=== PATIENT | male | born 1950 | race Caucasian/White ===

== ENCOUNTER 2017-05-07 14:43 | Inpatient (IN) | payer MEDICARE ==
[~2017-05-07] VITALS: Ht 167.6 cm; Wt 49.0 kg
[2017-05-07] MEDS ORDERED: IPRATRPIUM/ALBUTEROL 0.5/2.5MG 3 ML NEBU. ONE (15:08)
[2017-05-07 15:18] LABS: BASO # 0.1 x10^3/uL (0.0-0.2); BASO % 1 % (0-3); EOS # 0.4 x10^3/uL (0.0-0.7); EOS % 5 % (0-3); HEMATOCRIT 44.5 % (39.0-53.0); HEMOGLOBIN 14.5 g/dL (13.0-17.5); LYMPH # 1.8 x10^3/uL (1.0-4.8); LYMPH % 23 % (24-48); MEAN CORPUSCULAR HEMOGLOBIN 31 pg (25-35); MEAN CORPUSCULAR HGB CONC 33 g/dL (31-37); MEAN CORPUSCULAR VOLUME 94 fL (79-100); MONO # 0.6 x10^3/uL (0.0-1.1); MONO % 8 % (0-9); NEUT # 5.1 x10^3uL (1.8-7.7); NEUT % 64 % (31-73); PLATELET COUNT 292 x10^3/uL (140-400); RED BLOOD COUNT 4.72 x10^6/uL (4.30-5.70); RED CELL DISTRIBUTION WIDTH 14.7 % (11.5-14.5); WHITE BLOOD COUNT 7.9 x10^3/uL (4.0-11.0)
[2017-05-07 15:23] LABS: ALBUMIN 3.9 g/dL (3.4-5.0); ALBUMIN/GLOBULIN RATIO 1.1 (1.0-1.7); CALCIUM 9.1 mg/dL (8.5-10.1); CREATININE 0.7 mg/dL (0.7-1.3); GFR 112.1; TOTAL BILIRUBIN 0.4 mg/dL (0.2-1.0); TOTAL PROTEIN 7.5 g/dL (6.4-8.2)
[2017-05-07] MEDS ORDERED: ASPIRIN 81 MG TAB.CHEW PO ONE (15:40)
[2017-05-07] MEDS ORDERED: methylPREDNISolone SOD SUCC PF 125 MG/2 ML VIAL. IV ONE (15:40)
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
--- NOTE | 2017-05-07 16:34 | RAD ---
Exam: AP portable chest History: Chest pain for one day. Comparison: None. Findings: Cardiac silhouette appears within normal limits for size. No pneumothorax is seen. Emphysematous changes of the lungs are present. Patchy infiltrate is seen in the mid left lung zone. Old left rib fractures are seen. Impression: 1. Patchy parenchymal infiltrate in the left midlung zone. Recommend appropriate treatment and follow-up PA and lateral chest radiographs in 6-8 weeks to ensure resolution. Electronically signed by: Chidi Archer MD (05/07/2017 4:31 PM)
[2017-05-07] MEDS ORDERED: IV NORMAL SALINE 1,000ML 1,000 ML IV ONE (16:40)
[2017-05-07 17:37] LABS: BILIRUBIN,URINE NEG (NEG); CLARITY,URINE HAZY; COLOR,URINE YELLOW; GLUCOSE,URINE 500 mg/dL (NEG); NITRITE,URINE NEG (NEG); UROBILINOGEN,URINE 1 mg/dL (0.2 mg/dL)
[2017-05-07 17:38] LABS: AMORPHOUS SEDIMENT,UR PRESENT /HPF; BACTERIA,URINE 0 /HPF (0-FEW); RBC,URINE 0 /HPF (0-2); SQUAMOUS EPITHELIAL CELL,UR OCC /LPF; WBC,URINE OCC /HPF (0-4)
--- NOTE | 2017-05-07 19:06 | EKG ---
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
--- NOTE | 2017-05-07 19:13 | ACF ---
Admission Criteria Forms COPD Clinical Indications for Admission to Inpatient Care (Place 'X' for any and all applicable criteria): Admission is indicated for ANY ONE of the following (1)(2)(3): [ X]I. Acute exacerbation by high-risk comorbidity (e.g., pneumonia, dysrhythmia, heart failure, pleural effusion, pneumothorax) or severe underlying COPD (e.g., steroid dependent) [ ]II. Inpatient admission required rather than observation care (see Chronic Obstructive Pulmonary Disease: Observation Care) because of ANY ONE of the following: [ ]a) New or pre-existing signs or symptoms of COPD (eg, dyspnea or Tachypnea at rest or with minimal activity) that persist despite outpatient and observation care treatment [ ]b) New-onset hypoxemia (room air SaO2 less than 90%, PO2 less than 60 mm Hg (8.0 kPa)) that persists despite outpatient and observation care treatment [ ]c) Worsening of pre-existing hypoxemia (eg, new or increased requirement for supplemental oxygen to maintain oxygenation at baseline level) that persists despite outpatient and observation care treatment, with oxygen treatment needs performable only in acute inpatient setting [ ]d) Hypercarbia (PCO2 greater than 40 mm Hg (5.3 kPa))-induced respiratory acidosis (pH less than 7.35) that persists despite outpatient and observation care treatment [ ]e) Supplemental oxygen or respiratory treatments for over 24 hours that are performable only in acute inpatient setting [ ]f) Chest tube placement with active evacuation (e.g., suction, drainage) (5) [ ]g) Other condition, treatment or monitoring requiring inpatient admission [ ]III. Planned invasive surgical or diagnostic procedures requiring acute- care hospitalization [ ]IV. Acute respiratory failure (e.g., uncompensated hypercarbia, severe hypoxemia) [ ]V. Severe comorbid condition (e.g., severe steroid myopathy, acute vertebral fracture) that has acutely worsened pulmonary function [ ]. Confusion state, lethargy, obtundation, stupor or coma Extended stay beyond goal length of stay may be needed for (31)(32): [ ]a ) Respiratory Failure. [ ]b) Severe or persisting hypoxemia or hypercarbia [ ]c) Severe or persistent dyspnea [ ]d) Comorbidities (e.g. chronic heart failure, atrial fibrillation with rapid response, pneumonia) [ ]e) Malnutrition The original [facility] content created by [facility] has been revised. The portions of the content which have been revised are identified through the use of italic text or in bold, and [facility] has neither reviewed nor approved the modified material. All other unmodified content is copyright [facility]. Please see references footnoted in the original [facility] edition 2016 Admission Criteria Met?: Yes FELIX ONTIVEROS May 07, 2017 19:13
[2017-05-07 19:33] VITALS: BP 133/63
[2017-05-07] MEDS ORDERED: ALBUTEROL SULFATE 2.5 MG/0.5 ML NEBU. NEB PRN (21:00)
[2017-05-07] MEDS: ALPRAZolam 0.25 MG TABLET PO PRN (21:52)
[2017-05-07] MEDS: methylPREDNISolone SOD SUCC PF 40 MG/ML VIAL. IV SCH (21:52)
[2017-05-07 23:30] VITALS: BP 135/53
[2017-05-08 05:25] VITALS: BP 113/66
[2017-05-08] MEDS: methylPREDNISolone SOD SUCC PF 40 MG/ML VIAL. IV SCH ×3 (05:47→21:22)
[2017-05-08 07:17] LABS: ALBUMIN 2.9 g/dL (3.4-5.0); ALBUMIN/GLOBULIN RATIO 0.9 (1.0-1.7); CALCIUM 8.5 mg/dL (8.5-10.1); CREATININE 0.9 mg/dL (0.7-1.3); GFR 83.9; POTASSIUM 4.8 mmol/L (3.5-5.1); TOTAL BILIRUBIN 0.1 mg/dL (0.2-1.0); TOTAL PROTEIN 6.1 g/dL (6.4-8.2)
[2017-05-08 07:39] LABS: BASO % 0 % (0-3); EOS % 0 % (0-3); HEMOGLOBIN 11.6 g/dL (13.0-17.5); LYMPH # 0.6 x10^3/uL (1.0-4.8); LYMPH % 9 % (24-48); MEAN CORPUSCULAR HEMOGLOBIN 31 pg (25-35); MEAN CORPUSCULAR HGB CONC 33 g/dL (31-37); MEAN CORPUSCULAR VOLUME 93 fL (79-100); MONO # 0.2 x10^3/uL (0.0-1.1); MONO % 3 % (0-9); NEUT # 5.8 x10^3uL (1.8-7.7); NEUT % 88 % (31-73); PLATELET COUNT 252 x10^3/uL (140-400); RED BLOOD COUNT 3.77 x10^6/uL (4.30-5.70); RED CELL DISTRIBUTION WIDTH 14.3 % (11.5-14.5); WHITE BLOOD COUNT 6.7 x10^3/uL (4.0-11.0)
[2017-05-08] MEDS: ACETAMINOPHEN 325 MG TABLET PO PRN ×2 (09:19→21:22)
[2017-05-08] MEDS ORDERED: ROFL500T7 PO (09:49)
[2017-05-08] MEDS ORDERED: ALBU2.5V14 NEB (09:49)
[2017-05-08] MEDS ORDERED: ASPI-630 PO (09:50)
[2017-05-08] MEDS ORDERED: FLUO10CA7 PO (09:50)
[2017-05-08] MEDS ORDERED: TIOT18CA IH (09:54)
[2017-05-08] MEDS ORDERED: IBUP400T18 PO (10:00)
[2017-05-08 10:35] VITALS: BP 127/54
[2017-05-08 14:09] VITALS: BP 126/69
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
[2017-05-08] MEDS ORDERED: IBUPROFEN 400 MG TABLET. PO PRN (15:15)
[2017-05-08] MEDS ORDERED: ALBUTEROL SULFATE 2.5 MG/3 ML NEBU. NEB PRN (15:15)
[2017-05-08] MEDS ORDERED: ALBUTEROL SULFATE 2.5 MG/0.5 ML NEBU. NEB PRN (15:15)
[2017-05-08] MEDS: FLUoxetine HCL 10 MG CAPSULE PO SCH (15:42)
[2017-05-08] MEDS: ROFLUMILAST 500 MCG TABLET PO SCH (15:42)
[2017-05-08] MEDS: IPRATRPIUM/ALBUTEROL 0.5/2.5MG 3 ML NEBU. NEB SCH ×2 (16:00→20:00)
[2017-05-08 20:00] VITALS: BP 126/71
[2017-05-08] MEDS: ASPIRIN 81 MG TAB.CHEW PO SCH (21:22)
[2017-05-08] MEDS: ALPRAZolam 0.25 MG TABLET PO PRN (21:22)
--- NOTE | 2017-05-08 23:12 | PN ---
DATE: SUBJECTIVE: The patient is resting, slightly propped up in bed, in no apparent distress. He is definitely more awake, alert, responding appropriately. He has had no further episode of chest pain. He continued to have shortness of breath and was able to walk only for short distances because of shortness of breath. OBJECTIVE: GENERAL: When I examined him today, he looked well and was clearly pale, markedly cachectic, but no jaundice, cyanosis, or thyromegaly. No jugular venous distention. No limb edema. VITAL SIGNS: His heart rate was 96, blood pressure 117/64, temperature was 97.6, respiratory rate was 16, and oxygen saturation was 98% on 2 liters of oxygen. HEAD, EYES, EARS, NOSE AND THROAT: Showed normocephalic, atraumatic. NECK: Supple. HEART: Showed normal first and second heart sounds with no gallop, rub or murmur. CHEST: Clear to auscultation. No crepitation or rhonchi. ABDOMEN: Distended, soft, nontender. No guarding or rigidity. No organomegaly. Hernial orifices intact. Bowel sounds normal. NEUROLOGIC: He was awake, alert, responding appropriately. Cranial nerves intact. He moves extremities without difficulty, although he currently walks for short distances. LABORATORY DATA: Showed that he has only one set of cardiac enzymes, which showed troponin to be less than 0.017. PLAN: My plan is to continue with all his current medications. I will add 2 more sets of cardiac enzymes, check his fasting lipid profile tomorrow and consult Cardiology and if all is well, we will obviously consult our supervisor case loading to assist with placement in a [facility]. LISA STEIN MD DR: DAVID/devaughn JOB#: [id number] / [id number]
[2017-05-09 04:15] VITALS: BP 152/80
[2017-05-09 05:00] VITALS: BP 125/70
[2017-05-09] MEDS: methylPREDNISolone SOD SUCC PF 40 MG/ML VIAL. IV SCH ×3 (05:53→21:55)
[2017-05-09] MEDS: IPRATRPIUM/ALBUTEROL 0.5/2.5MG 3 ML NEBU. NEB SCH ×4 (08:00→20:28)
[2017-05-09] MEDS: ROFLUMILAST 500 MCG TABLET PO SCH (08:09)
[2017-05-09] MEDS: ALPRAZolam 0.25 MG TABLET PO PRN ×2 (08:09→20:40)
[2017-05-09] MEDS: FLUoxetine HCL 10 MG CAPSULE PO SCH (08:10)
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
[2017-05-09 11:13] VITALS: BP 127/83
[2017-05-09] MEDS: DOXYCYCLINE HYCLATE 100 MG TABLET PO SCH ×2 (13:46→20:41)
--- NOTE | 2017-05-09 14:38 | RAD ---
Indication: Infiltrate. Time of exam 1511 hours. Correlation is made with prior study from 05/07/2017. The heart size is stable. Lungs remain hyperinflated consistent with COPD. The parenchymal density in the left midlung field is similar to perhaps slightly improved since prior study. The right lung is clear. No effusion is seen. There is no pneumothorax. Impression: Stable to slight improved appearance to the parenchymal density in the left mid lung when compared with exam 2 days earlier. Continued follow-up is recommended.
--- NOTE | 2017-05-09 14:44 | CARD ---
APPROVED REPORT EXAM: Two-dimensional and M-mode echocardiogram with Doppler and color Doppler. Other Information Quality : Technically Limited Technically limited study due to smoking, COPD. INDICATION Dyspnea 2D DIMENSIONS RVDd2.9 (2.9-3.5cm)Left Atrium(2D)2.4 (1.6-4.0cm) IVSd0.9 (0.7-1.1cm)Aortic Root(2D)3.0 (2.0-3.7cm) LVDd4.6 (3.9-5.9cm)LVOT Diameter2.1 (1.8-2.4cm) PWd0.9 (0.7-1.1cm)LVDs3.2 (2.5-4.0cm) FS (%) 27.6 %SV57.2 ml LVEF(%)55.1 (>50%) Aortic Valve AoV Peak Marcos.135.3cm/sAoV VTI23.3cm AO Peak GR.7.3mmHgLVOT Peak Marcos.114.4cm/s LVOT VTI 20.98cmAO Mean GR.4mmHg DARWIN (VMAX)2.60lp6GKW (VTI)3.01cm2 Mitral Valve MV E Impwvfcj66.8cm/sMV DECEL IACE693kq MV A Heknbltn276.8cm/sMV YNW40pf E/A Ratio0.8MV A Busokwny852fk MVA (PHT)3.89cm2 Tricuspid Valve TR P. Oosgvhwz548ho/sRAP HYKXAHGK9haDp TR Peak Gr.00kfKqZXTT46onFm LEFT VENTRICLE The left ventricle is normal size. There is normal left ventricular wall thickness. Left ventricle sy stolic function is normal. The Ejection Fraction is 55-60%. There is normal LV segmental wall motion. Tissue Doppler imaging reveals mild left ventricular diastolic dysfunction. Transmitral Doppler flow pattern is Grade I-abnormal relaxation pattern. RIGHT VENTRICLE The right ventricle is normal size. The right ventricular systolic function is normal. ATRIA The left atrium size is normal. The right atrium size is normal. The interatrial septum is intact wit h no evidence for an atrial septal defect or patent foramen ovale as noted on 2-D or Doppler imaging. AORTIC VALVE The aortic valve is mildly calcified. The aortic valve is trileaflet. Doppler and Color Flow revealed trace aortic regurgitation. There is no significant aortic valvular stenosis. MITRAL VALVE Mitral annular calcification is mild. There is no evidence of mitral valve prolapse. There is no mitr al valve stenosis. Doppler and Color Flow revealed trace mitral valve regurgitation. TRICUSPID VALVE The tricuspid valve is normal in structure and function. Doppler and Color Flow revealed mild tricusp id regurgitation. The PA pressure was estimated at 29 mmHg. There is no tricuspid valve stenosis. PULMONIC VALVE The pulmonic valve is not well visualized. Doppler and Color Flow revealed no pulmonic valvular regur gitation. There is no pulmonic valvular stenosis. GREAT VESSELS The aortic root is normal in size. The IVC is normal in size and collapses >50% with inspiration. PERICARDIAL EFFUSION There is no evidence of significant pericardial effusion. Critical Notification Critical Value: No <Conclusion> The left ventricle is normal size. Left ventricle systolic function is normal. The Ejection Fraction is 55-60%. There is no significant aortic valvular stenosis. Doppler and Color Flow revealed trace aortic regurgitation. Doppler and Color Flow revealed trace mitral valve regurgitation. Doppler and Color Flow revealed mild tricuspid regurgitation. The PA pressure was estimated at 29 mmHg.
[2017-05-09 15:52] VITALS: BP 134/73
[2017-05-09 18:54] VITALS: BP 124/66
[2017-05-09] MEDS: ACETAMINOPHEN 325 MG TABLET PO PRN (20:41)
[2017-05-09] MEDS: ASPIRIN 81 MG TAB.CHEW PO SCH (20:41)
[2017-05-09 22:45] VITALS: BP 118/58
--- NOTE | 2017-05-09 23:03 | PN ---
DATE: 05/09/2017 PROBLEMS: 1. Acute exacerbation of chronic obstructive pulmonary disease. 2. Chest pain. 3. Hypoxia. 4. Patchy infiltrate in the left mid lung. 5. Anxiety. The patient is a 67-year-old, assuming care of Dr. Monroy. He has been quite anxious and the nurses have given him some Xanax. [place] [facility] [place] [facility] paid for by the [place]. Still a little short of breath with exertion, remains on oxygen. The diagnosis should be acute on chronic respiratory failure. OBJECTIVE: VITAL SIGNS: Blood pressure 127/83, pulse 78, respirations 24, pulse ox was 100% on 2 liters, height 66 inches, weight 108 pounds. GENERAL: Cachectic-appearing male in no acute distress. HEENT: Tongue slightly dry. NECK: Supple. LUNGS: With distant breath sounds, with scattered wheezes. CARDIOVASCULAR: Regular rhythm and rate. ABDOMEN: Soft, nontender. EXTREMITIES: Without edema. DIAGNOSTIC DATA: Chest x-ray from yesterday noted from the shows patchy infiltrate in the left mid lung. LABORATORY DATA: Today, glucose is slightly elevated at 206. Troponins are negative. PLAN: 1. Decrease the dose of IV steroids. 2. Add in antibiotics. 3. PT, OT. 4. Plan for senior living services. BRI ALEXANDRE DO DR: DUARTE/devaughn JOB#: [id number] / [id number]
[2017-05-10] MEDS: IPRATRPIUM/ALBUTEROL 0.5/2.5MG 3 ML NEBU. NEB SCH ×4 (05:36→19:47)
[2017-05-10] MEDS: methylPREDNISolone SOD SUCC PF 40 MG/ML VIAL. IV SCH (06:00)
[2017-05-10 06:06] VITALS: BP 120/61
[2017-05-10 06:38] LABS: BASO % 0 % (0-3); EOS % 0 % (0-3); HEMATOCRIT 37.3 % (39.0-53.0); HEMOGLOBIN 12.2 g/dL (13.0-17.5); LYMPH # 0.8 x10^3/uL (1.0-4.8); LYMPH % 4 % (24-48); MEAN CORPUSCULAR HEMOGLOBIN 30 pg (25-35); MEAN CORPUSCULAR HGB CONC 33 g/dL (31-37); MEAN CORPUSCULAR VOLUME 92 fL (79-100); MONO # 0.9 x10^3/uL (0.0-1.1); MONO % 5 % (0-9); NEUT # 18.7 x10^3uL (1.8-7.7); NEUT % 92 % (31-73); PLATELET COUNT 280 x10^3/uL (140-400); RED BLOOD COUNT 4.04 x10^6/uL (4.30-5.70); RED CELL DISTRIBUTION WIDTH 14.7 % (11.5-14.5); WHITE BLOOD COUNT 20.4 x10^3/uL (4.0-11.0)
[2017-05-10 06:54] LABS: CALCIUM 8.7 mg/dL (8.5-10.1); CREATININE 0.8 mg/dL (0.7-1.3); GFR 96.1; MAGNESIUM 1.8 mg/dL (1.8-2.4); POTASSIUM 4.2 mmol/L (3.5-5.1); TOTAL BILIRUBIN 0.2 mg/dL (0.2-1.0); TOTAL PROTEIN 6.1 g/dL (6.4-8.2)
[2017-05-10 08:04] LABS: % BANDS 0 % (0-9); % BASOS 0 % (0-3); % EOS 0 % (0-5); % LYMPHS 5 % (24-48); % MONOS 3 % (0-10); % SEGS 92 % (35-66); PLT ESTIMATE ADEQUATE (ADEQUATE)
[2017-05-10] MEDS ORDERED: methylPREDNISolone SOD SUCC PF 40 MG/ML VIAL. IV SCH (08:45)
[2017-05-10] MEDS: ROFLUMILAST 500 MCG TABLET PO SCH (09:48)
[2017-05-10] MEDS: DOXYCYCLINE HYCLATE 100 MG TABLET PO SCH ×2 (09:48→20:22)
[2017-05-10] MEDS: FLUoxetine HCL 10 MG CAPSULE PO SCH (09:48)
--- NOTE | 2017-05-10 10:23 | PDOC ---
PROGRESS NOTES Diagnosis Problem Problems Medical Problems: (1) Chest pain Status: Acute (2) COPD exacerbation Status: Acute (3) Hypoxia Status: Acute Assessment Problems Medical Problems: (1) Chest pain Status: Acute (2) COPD exacerbation Status: Acute (3) Hypoxia Status: Acute 1. Chest pain c/w angina - resolved and now remains chest pain free. 2. CAD - abn MPI last year. Continue aspirin, no beta blockers due to COPD, add Ranexa. Recommend cardiac cath. He would prefer to follow with Dr Yee at [facility]. Lipids controlled but will add statin for plaque stabilization. Consider advanced lipid testing as outpatient. Suggest follow up in the next 2- 4 weeks, with primary facility maintenance technician, for re-evaluation and possible cath. He should have BMP in 1-2 weeks and FLP, CK, ALT in 6 weeks. 3. COPD exacerbation - improved 4. paroxysmal atrial fibrillation in post code setting - no known reoccurrence. - Suggest outpatient event monitoring for afib burden. [id number] = 2. Aspirin only at this time pending outpatient re-evaluation with primary facility maintenance technician. CV stable for discharge. POC discussed with Dr Christopher. Problems: Subjective no chest pain, breathing much better, no new complaints Objective tele - sinus rhythm Vital Signs Date Time Temp Pulse Resp B/P (MAP) Pulse Ox O2 Delivery O2 Flow Rate FiO2 05/10/17 07:20 Nasal Cannula 2.0 05/10/17 06:06 97.9 96 20 120/61 (80) 96 Intake and Output 05/10/17 07:00 Intake Total 1980 ml Output Total 2200 ml Balance -220 ml Intake Oral 1980 ml Output Urine Total 2200 ml # Bowel Movements 1 Abdomen: Normal bowel sounds, Soft Heart: Regular rate, Normal S1, Normal S2 Extremities: No cyanosis, No edema, Normal pulses General: Alert, Oriented X3, Cooperative, No acute distress HEENT: Atraumatic, EOMI, Mucous membr. moist/pink Lungs: Other (wheezing resolved, bases decreased) Neuro: Normal speech Psych/Mental Status: Mental status NL, Mood NL Review of Relevant I have reviewed the following items sharri (where applicable) has been applied. Labs Laboratory Tests Test 05/08/17 13:33 05/08/17 18:45 05/09/17 05:40 05/10/17 06:15 Troponin I Quantitative < 0.017 ng/mL (0-0.055) < 0.017 ng/mL (0-0.055) Triglycerides Level 50 mg/dL (0-150) Cholesterol Level 154 mg/dL (0-200) LDL Cholesterol, Calculated 69 mg/dL (0-100) VLDL Cholesterol, Calculated 10 mg/dL (0-40) Non-HDL Cholesterol Calculated 79 mg/dL (0-129) HDL Cholesterol 75 mg/dL (40-60) Cholesterol/HDL Ratio 2.0 White Blood Count 20.4 x10^3/uL (4.0-11.0) Red Blood Count 4.04 x10^6/uL (4.30-5.70) Hemoglobin 12.2 g/dL (13.0-17.5) Hematocrit 37.3 % (39.0-53.0) Mean Corpuscular Volume 92 fL (79-100) Mean Corpuscular Hemoglobin 30 pg (25-35) Mean Corpuscular Hemoglobin Concent 33 g/dL (31-37) Red Cell Distribution Width 14.7 % (11.5-14.5) Platelet Count 280 x10^3/uL (140-400) Neutrophils (%) (Auto) 92 % (31-73) Lymphocytes (%) (Auto) 4 % (24-48) Monocytes (%) (Auto) 5 % (0-9) Eosinophils (%) (Auto) 0 % (0-3) Basophils (%) (Auto) 0 % (0-3) Neutrophils # (Auto) 18.7 x10^3uL (1.8-7.7) Lymphocytes # (Auto) 0.8 x10^3/uL (1.0-4.8) Monocytes # (Auto) 0.9 x10^3/uL (0.0-1.1) Eosinophils # (Auto) 0.0 x10^3/uL (0.0-0.7) Basophils # (Auto) 0.0 x10^3/uL (0.0-0.2) Segmented Neutrophils % 92 % (35-66) Band Neutrophils % 0 % (0-9) Lymphocytes % 5 % (24-48) Monocytes % 3 % (0-10) Eosinophils % 0 % (0-5) Basophils % 0 % (0-3) Platelet Estimate Adequate (ADEQUATE) Sodium Level 141 mmol/L (136-145) Potassium Level 4.2 mmol/L (3.5-5.1) Chloride Level 104 mmol/L (98-107) Carbon Dioxide Level 34 mmol/L (21-32) Anion Gap 3 (6-14) Blood Urea Nitrogen 19 mg/dL (8-26) Creatinine 0.8 mg/dL (0.7-1.3) Estimated GFR (Cockcroft-Gault) 96.1 BUN/Creatinine Ratio 24 (6-20) Glucose Level 144 mg/dL (70-99) Calcium Level 8.7 mg/dL (8.5-10.1) Magnesium Level 1.8 mg/dL (1.8-2.4) Total Bilirubin 0.2 mg/dL (0.2-1.0) Aspartate Amino Transf (AST/SGOT) 12 U/L (15-37) Alanine Aminotransferase (ALT/SGPT) 24 U/L (16-63) Alkaline Phosphatase 56 U/L (46-116) Total Protein 6.1 g/dL (6.4-8.2) Albumin 3.0 g/dL (3.4-5.0) Albumin/Globulin Ratio 1.0 (1.0-1.7) Medications Current Medications Aspirin (Children'S Aspirin) 324 mg 1X ONCE PO Last administered on 05/07/17 15:33; Start 05/07/17 at 15:40; Stop 05/07/17 at 15:41; Status DC Methylprednisolone Sodium Succinate (SOLU-Medrol 125MG VIAL) 125 mg 1X ONCE IV Last administered on 05/07/17 15:32; Start 05/07/17 at 15:40; Stop 05/07/17 at 15:41; Status DC Albuterol/ Ipratropium (Duoneb) 3 ml STK-MED ONCE .ROUTE ; Start 05/07/17 at 15: 08; Stop 05/07/17 at 15:09; Status DC Sodium Chloride 1,000 ml @ 1,000 mls/hr 1X ONCE IV Last administered on 16:40; Start 05/07/17 at 16:40; Stop 05/07/17 at 17:39; Status DC Albuterol Sulfate (Ventolin) 2.5 mg PRN Q4HRS PRN NEB SHORTNESS OF BREATH; Start 05/07/17 at 21:00; Stop 05/08/17 at 15:12; Status DC Methylprednisolone Sodium Succinate (SOLU-Medrol 40MG VIAL) 40 mg Q8HRS IV Last administered on 05/09/17 05:53; Start 05/07/17 at 22:00; Stop 05/09/17 at 11:51; Status DC Acetaminophen (Tylenol) 650 mg PRN Q4HRS PRN PO PAIN / TEMP Last administered on 05/09/17 20:41; Start 05/07/17 at 20:45 Alprazolam (Xanax) 0.25 mg PRN Q8HRS PRN PO ANXIETY / AGITATION Last administered on 05/09/17 20:40; Start 05/07/17 at 21:15 Albuterol Sulfate (Ventolin) 2.5 mg PRN Q4HRS PRN NEB SHORTNESS OF BREATH; Start 05/08/17 at 15:15; Stop 05/08/17 at 15:15; Status DC Aspirin (Children'S Aspirin) 81 mg HS PO Last administered on 05/09/17 20:41; Start 05/08/17 at 21:00 Fluoxetine HCl (PROzac) 10 mg DAILY PO Last administered on 05/10/17 09:48; Start 05/08/17 at 15:30 Ibuprofen (Motrin) 200 mg PRN TID PRN PO PAIN; Start 05/08/17 at 15:15 Albuterol/ Ipratropium (Duoneb) 3 ml RTQID NEB Last administered on 05/10/17 05:36; Start 05/08/17 at 16:00 Albuterol Sulfate (Ventolin) 2.5 mg PRN Q4HRS PRN NEB SHORTNESS OF BREATH; Start 05/08/17 at 15:15 Methylprednisolone Sodium Succinate (SOLU-Medrol 40MG VIAL) 30 mg Q8HRS IV Last administered on 05/10/17 06:00; Start 05/09/17 at 14:00; Stop 05/10/17 at 08:22; Status DC Doxycycline Hyclate (Vibra-Tab) 100 mg BID PO Last administered on 05/10/17 09 :48; Start 05/09/17 at 12:15 Methylprednisolone Sodium Succinate (SOLU-Medrol 40MG VIAL) 30 mg [id number] IV Last administered on 05/10/17t 09:48; Start 05/10/17 at 08:45 Active Scripts Active Reported Ibuprofen 400 Mg Tablet 0.5 Tab PO TID PRN Spiriva (Tiotropium [place]) 18 Mcg Cap.w.dev 1 Cap IH DAILY Fluoxetine Hcl 10 Mg Capsule 1 Cap PO DAILY Aspirin 81 Mg Tab.chew 81 Mg PO HS Daliresp (Roflumilast) 500 Mcg Tablet 1 Tab PO DAILY Albuterol Sulfate Conc Neb Soln (Albuterol Sulfate) 2.5 Mg/0.5 Ml Vial.neb 1 Vial NEB Q4HRS PRN Vitals/I & O Vital Sign - Last 24 Hours 05/09/17 05/09/17 05/09/17 05/09/17 11:13 11:21 15:52 16:09 Temp 97.7 98.5 Pulse 78 93 Resp 24 24 B/P (MAP) 127/83 (98) 134/73 (93) Pulse Ox 100 99 100 99 O2 Delivery Nasal Cannula Nasal Cannula Room Air Nasal Cannula O2 Flow Rate 2.0 2.0 2.0 05/09/17 05/09/17 05/09/17 05/09/17 18:54 19:10 20:29 22:45 Temp 98.4 98.7 Pulse 96 100 Resp 22 20 B/P (MAP) 124/66 (85) 118/58 (78) Pulse Ox 98 96 97 O2 Delivery Room Air Nasal Cannula Room Air Nasal Cannula O2 Flow Rate 2.0 2.0 21.0 2.0 05/10/17 05/10/17 05/10/17 05:37 06:06 07:20 Temp 97.9 Pulse 96 Resp 20 B/P (MAP) 120/61 (80) Pulse Ox 98 96 O2 Delivery Room Air Nasal Cannula Nasal Cannula O2 Flow Rate 2.0 2.0 2.0 Intake and Output 05/09/17 05/09/17 05/10/17 15:00 23:00 07:00 Intake Total 840 ml 840 ml 300 ml Output Total 800 ml 1000 ml 400 ml Balance 40 ml -160 ml -100 ml LINUS ESCOBAR APRN May 10, 2017 10:23
[2017-05-10] MEDS: ALPRAZolam 0.25 MG TABLET PO PRN ×2 (10:38→20:20)
[2017-05-10 12:25] VITALS: BP 117/64
[2017-05-10 15:39] VITALS: BP 122/67
--- NOTE | 2017-05-10 16:32 | PDOC ---
PROGRESS NOTES Diagnosis RESPIRATORY FAILURE: Acute on Chronic Problem Problems Medical Problems: (1) Chest pain Status: Acute (2) COPD exacerbation Status: Acute (3) Hypoxia Status: Acute Assessment Problems Medical Problems: (1) Chest pain Status: Acute (2) COPD exacerbation Status: Acute (3) Hypoxia Status: Acute Problems: Objective Vital Signs Date Time Temp Pulse Resp B/P (MAP) Pulse Ox O2 Delivery O2 Flow Rate FiO2 05/10/17 12:25 99.4 110 20 117/64 (81) 96 Nasal Cannula 2.0 Intake and Output 05/10/17 07:00 Intake Total 1980 ml Output Total 2200 ml Balance -220 ml Intake Oral 1980 ml Output Urine Total 2200 ml # Bowel Movements 1 Review of Relevant I have reviewed the following items sharri (where applicable) has been applied. Labs Laboratory Tests Test 05/08/17 18:45 05/09/17 05:40 05/10/17 06:15 Troponin I Quantitative < 0.017 ng/mL (0-0.055) Triglycerides Level 50 mg/dL (0-150) Cholesterol Level 154 mg/dL (0-200) LDL Cholesterol, Calculated 69 mg/dL (0-100) VLDL Cholesterol, Calculated 10 mg/dL (0-40) Non-HDL Cholesterol Calculated 79 mg/dL (0-129) HDL Cholesterol 75 mg/dL (40-60) Cholesterol/HDL Ratio 2.0 White Blood Count 20.4 x10^3/uL (4.0-11.0) Red Blood Count 4.04 x10^6/uL (4.30-5.70) Hemoglobin 12.2 g/dL (13.0-17.5) Hematocrit 37.3 % (39.0-53.0) Mean Corpuscular Volume 92 fL (79-100) Mean Corpuscular Hemoglobin 30 pg (25-35) Mean Corpuscular Hemoglobin Concent 33 g/dL (31-37) Red Cell Distribution Width 14.7 % (11.5-14.5) Platelet Count 280 x10^3/uL (140-400) Neutrophils (%) (Auto) 92 % (31-73) Lymphocytes (%) (Auto) 4 % (24-48) Monocytes (%) (Auto) 5 % (0-9) Eosinophils (%) (Auto) 0 % (0-3) Basophils (%) (Auto) 0 % (0-3) Neutrophils # (Auto) 18.7 x10^3uL (1.8-7.7) Lymphocytes # (Auto) 0.8 x10^3/uL (1.0-4.8) Monocytes # (Auto) 0.9 x10^3/uL (0.0-1.1) Eosinophils # (Auto) 0.0 x10^3/uL (0.0-0.7) Basophils # (Auto) 0.0 x10^3/uL (0.0-0.2) Segmented Neutrophils % 92 % (35-66) Band Neutrophils % 0 % (0-9) Lymphocytes % 5 % (24-48) Monocytes % 3 % (0-10) Eosinophils % 0 % (0-5) Basophils % 0 % (0-3) Platelet Estimate Adequate (ADEQUATE) Sodium Level 141 mmol/L (136-145) Potassium Level 4.2 mmol/L (3.5-5.1) Chloride Level 104 mmol/L (98-107) Carbon Dioxide Level 34 mmol/L (21-32) Anion Gap 3 (6-14) Blood Urea Nitrogen 19 mg/dL (8-26) Creatinine 0.8 mg/dL (0.7-1.3) Estimated GFR (Cockcroft-Gault) 96.1 BUN/Creatinine Ratio 24 (6-20) Glucose Level 144 mg/dL (70-99) Calcium Level 8.7 mg/dL (8.5-10.1) Magnesium Level 1.8 mg/dL (1.8-2.4) Total Bilirubin 0.2 mg/dL (0.2-1.0) Aspartate Amino Transf (AST/SGOT) 12 U/L (15-37) Alanine Aminotransferase (ALT/SGPT) 24 U/L (16-63) Alkaline Phosphatase 56 U/L (46-116) Total Protein 6.1 g/dL (6.4-8.2) Albumin 3.0 g/dL (3.4-5.0) Albumin/Globulin Ratio 1.0 (1.0-1.7) Medications Current Medications Aspirin (Children'S Aspirin) 324 mg 1X ONCE PO Last administered on 05/07/17t 15:33; Start 05/07/17 at 15:40; Stop 05/07/17 at 15:41; Status DC Methylprednisolone Sodium Succinate (SOLU-Medrol 125MG VIAL) 125 mg 1X ONCE IV Last administered on 05/07/17 15:32; Start 05/07/17 at 15:40; Stop 05/07/17 at 15:41; Status DC Albuterol/ Ipratropium (Duoneb) 3 ml STK-MED ONCE .ROUTE ; Start 05/07/17 at 15: 08; Stop 05/07/17 at 15:09; Status DC Sodium Chloride 1,000 ml @ 1,000 mls/hr 1X ONCE IV Last administered on 16:40; Start 05/07/17 at 16:40; Stop 05/07/17 at 17:39; Status DC Albuterol Sulfate (Ventolin) 2.5 mg PRN Q4HRS PRN NEB SHORTNESS OF BREATH; Start 05/07/17 at 21:00; Stop 05/08/17 at 15:12; Status DC Methylprednisolone Sodium Succinate (SOLU-Medrol 40MG VIAL) 40 mg Q8HRS IV Last administered on 05/09/17 05:53; Start 05/07/17 at 22:00; Stop 05/09/17 at 11:51; Status DC Acetaminophen (Tylenol) 650 mg PRN Q4HRS PRN PO PAIN / TEMP Last administered on 05/09/17 20:41; Start 05/07/17 at 20:45 Alprazolam (Xanax) 0.25 mg PRN Q8HRS PRN PO ANXIETY / AGITATION Last administered on 05/10/17 10:38; Start 05/07/17 at 21:15 Albuterol Sulfate (Ventolin) 2.5 mg PRN Q4HRS PRN NEB SHORTNESS OF BREATH; Start 05/08/17 at 15:15; Stop 05/08/17 at 15:15; Status DC Aspirin (Children'S Aspirin) 81 mg HS PO Last administered on 05/09/17 20:41; Start 05/08/17 at 21:00 Fluoxetine HCl (PROzac) 10 mg DAILY PO Last administered on 05/10/17 09:48; Start 05/08/17 at 15:30 Ibuprofen (Motrin) 200 mg PRN TID PRN PO PAIN; Start 05/08/17 at 15:15 Albuterol/ Ipratropium (Duoneb) 3 ml RTQID NEB Last administered on 05/10/17 05:36; Start 05/08/17 at 16:00 Albuterol Sulfate (Ventolin) 2.5 mg PRN Q4HRS PRN NEB SHORTNESS OF BREATH; Start 05/08/17 at 15:15 Methylprednisolone Sodium Succinate (SOLU-Medrol 40MG VIAL) 30 mg Q8HRS IV Last administered on 05/10/17 06:00; Start 05/09/17 at 14:00; Stop 05/10/17 at 08:22; Status DC Doxycycline Hyclate (Vibra-Tab) 100 mg BID PO Last administered on 05/10/17 09 :48; Start 05/09/17 at 12:15 Methylprednisolone Sodium Succinate (SOLU-Medrol 40MG VIAL) 30 mg [id number] IV Last administered on 05/10/17 09:48; Start 05/10/17 at 08:45; Stop 05/10/17 at 10:55; Status DC Ranolazine (Ranexa) 500 mg BID PO ; Start 05/10/17 at 21:00 Atorvastatin Calcium (Lipitor) 40 mg QHS PO ; Start 05/10/17 at 21:00 Prednisone (Prednisone) 10 mg 1X ONCE PO ; Start 05/10/17 at 17:00; Stop at 17:01 Prednisone (Prednisone) 20 mg 1X ONCE PO ; Start 05/10/17 at 17:00; Stop at 17:01 Prednisone (Prednisone) 20 mg BID PO ; Start 05/11/17 at 09:00; Stop 05/13/17 at 08:59 Active Scripts Active Reported Ibuprofen 400 Mg Tablet 0.5 Tab PO TID PRN Spiriva (Tiotropium [place]) 18 Mcg Cap.w.dev 1 Cap IH DAILY Fluoxetine Hcl 10 Mg Capsule 1 Cap PO DAILY Aspirin 81 Mg Tab.chew 81 Mg PO HS Daliresp (Roflumilast) 500 Mcg Tablet 1 Tab PO DAILY Albuterol Sulfate Conc Neb Soln (Albuterol Sulfate) 2.5 Mg/0.5 Ml Vial.neb 1 Vial NEB Q4HRS PRN Vitals/I & O Vital Sign - Last 24 Hours 05/09/17 05/09/17 05/09/1717 18:54 19:10 20:29 22:45 Temp 98.4 98.7 Pulse 96 100 Resp 22 20 B/P (MAP) 124/66 (85) 118/58 (78) Pulse Ox 98 96 97 O2 Delivery Room Air Nasal Cannula Room Air Nasal Cannula O2 Flow Rate 2.0 2.0 21.0 2.0 05/10/17 05/10/17 05/10/17 05/10/17 05:37 06:06 07:20 12:25 Temp 97.9 99.4 Pulse 96 110 Resp 20 20 B/P (MAP) 120/61 (80) 117/64 (81) Pulse Ox 98 96 96 O2 Delivery Room Air Nasal Cannula Nasal Cannula Nasal Cannula O2 Flow Rate 2.0 2.0 2.0 2.0 Intake and Output 05/09/17 05/09/17 05/10/17 15:00 23:00 07:00 Intake Total 840 ml 840 ml 300 ml Output Total 800 ml 1000 ml 400 ml Balance 40 ml -160 ml -100 ml BRI ALEXANDRE DO May 10, 2017 16:32
--- NOTE | 2017-05-10 16:50 | PDOC ---
PROGRESS NOTES Diagnosis Problem Problems Medical Problems: (1) Chest pain Status: Acute (2) COPD exacerbation Status: Acute (3) Hypoxia Status: Acute Assessment Problems Medical Problems: (1) Chest pain Status: Acute (2) COPD exacerbation Status: Acute (3) Hypoxia Status: Acute Problems: Subjective 67 y/o male admitted with acute on chronic hypoxic respiratory failure, acute exacerbation of Copd, Let middle lobe pneumonia, underweight, sever protein calorie malnutrition, anxiety. Doing better. Breathing better. We are working on finding placement for him as he feels he would be better off in a nursing facility. Objective color improved, tongue moist, throat clear, CVrrr, Lungs with distant breath sounds and a few scattered wheezes. Extremities without edema Vital Signs Date Time Temp Pulse Resp B/P (MAP) Pulse Ox O2 Delivery O2 Flow Rate FiO2 05/10/17 12:25 99.4 110 20 117/64 (81) 96 Nasal Cannula 2.0 Intake and Output 05/10/17 07:00 Intake Total 1980 ml Output Total 2200 ml Balance -220 ml Intake Oral 1980 ml Output Urine Total 2200 ml # Bowel Movements 1 Abdomen: Normal bowel sounds, Soft, No tenderness, No hepatospenomegaly, No masses Review of Relevant I have reviewed the following items sharri (where applicable) has been applied. Labs Laboratory Tests Test 05/08/17 18:45 05/09/17 05:40 05/10/17 06:15 Troponin I Quantitative < 0.017 ng/mL (0-0.055) Triglycerides Level 50 mg/dL (0-150) Cholesterol Level 154 mg/dL (0-200) LDL Cholesterol, Calculated 69 mg/dL (0-100) VLDL Cholesterol, Calculated 10 mg/dL (0-40) Non-HDL Cholesterol Calculated 79 mg/dL (0-129) HDL Cholesterol 75 mg/dL (40-60) Cholesterol/HDL Ratio 2.0 White Blood Count 20.4 x10^3/uL (4.0-11.0) Red Blood Count 4.04 x10^6/uL (4.30-5.70) Hemoglobin 12.2 g/dL (13.0-17.5) Hematocrit 37.3 % (39.0-53.0) Mean Corpuscular Volume 92 fL (79-100) Mean Corpuscular Hemoglobin 30 pg (25-35) Mean Corpuscular Hemoglobin Concent 33 g/dL (31-37) Red Cell Distribution Width 14.7 % (11.5-14.5) Platelet Count 280 x10^3/uL (140-400) Neutrophils (%) (Auto) 92 % (31-73) Lymphocytes (%) (Auto) 4 % (24-48) Monocytes (%) (Auto) 5 % (0-9) Eosinophils (%) (Auto) 0 % (0-3) Basophils (%) (Auto) 0 % (0-3) Neutrophils # (Auto) 18.7 x10^3uL (1.8-7.7) Lymphocytes # (Auto) 0.8 x10^3/uL (1.0-4.8) Monocytes # (Auto) 0.9 x10^3/uL (0.0-1.1) Eosinophils # (Auto) 0.0 x10^3/uL (0.0-0.7) Basophils # (Auto) 0.0 x10^3/uL (0.0-0.2) Segmented Neutrophils % 92 % (35-66) Band Neutrophils % 0 % (0-9) Lymphocytes % 5 % (24-48) Monocytes % 3 % (0-10) Eosinophils % 0 % (0-5) Basophils % 0 % (0-3) Platelet Estimate Adequate (ADEQUATE) Sodium Level 141 mmol/L (136-145) Potassium Level 4.2 mmol/L (3.5-5.1) Chloride Level 104 mmol/L (98-107) Carbon Dioxide Level 34 mmol/L (21-32) Anion Gap 3 (6-14) Blood Urea Nitrogen 19 mg/dL (8-26) Creatinine 0.8 mg/dL (0.7-1.3) Estimated GFR (Cockcroft-Gault) 96.1 BUN/Creatinine Ratio 24 (6-20) Glucose Level 144 mg/dL (70-99) Calcium Level 8.7 mg/dL (8.5-10.1) Magnesium Level 1.8 mg/dL (1.8-2.4) Total Bilirubin 0.2 mg/dL (0.2-1.0) Aspartate Amino Transf (AST/SGOT) 12 U/L (15-37) Alanine Aminotransferase (ALT/SGPT) 24 U/L (16-63) Alkaline Phosphatase 56 U/L (46-116) Total Protein 6.1 g/dL (6.4-8.2) Albumin 3.0 g/dL (3.4-5.0) Albumin/Globulin Ratio 1.0 (1.0-1.7) Medications Current Medications Aspirin (Children'S Aspirin) 324 mg 1X ONCE PO Last administered on 05/07/17 15:33; Start 05/07/17 at 15:40; Stop 05/07/17 at 15:41; Status DC Methylprednisolone Sodium Succinate (SOLU-Medrol 125MG VIAL) 125 mg 1X ONCE IV Last administered on 05/07/17 15:32; Start 05/07/17 at 15:40; Stop 05/07/17 at 15:41; Status DC Albuterol/ Ipratropium (Duoneb) 3 ml STK-MED ONCE .ROUTE ; Start 05/07/17 at 15: 08; Stop 05/07/17 at 15:09; Status DC Sodium Chloride 1,000 ml @ 1,000 mls/hr 1X ONCE IV Last administered on 16:40; Start 05/07/17 at 16:40; Stop 05/07/17 at 17:39; Status DC Albuterol Sulfate (Ventolin) 2.5 mg PRN Q4HRS PRN NEB SHORTNESS OF BREATH; Start 05/07/17 at 21:00; Stop 05/08/17 at 15:12; Status DC Methylprednisolone Sodium Succinate (SOLU-Medrol 40MG VIAL) 40 mg Q8HRS IV Last administered on 05/09/17 05:53; Start 05/07/17 at 22:00; Stop 05/09/17 at 11:51; Status DC Acetaminophen (Tylenol) 650 mg PRN Q4HRS PRN PO PAIN / TEMP Last administered on 05/09/17 20:41; Start 05/07/17 at 20:45 Alprazolam (Xanax) 0.25 mg PRN Q8HRS PRN PO ANXIETY / AGITATION Last administered on 05/10/17 10:38; Start 05/07/17 at 21:15 Albuterol Sulfate (Ventolin) 2.5 mg PRN Q4HRS PRN NEB SHORTNESS OF BREATH; Start 05/08/17 at 15:15; Stop 05/08/17 at 15:15; Status DC Aspirin (Children'S Aspirin) 81 mg HS PO Last administered on 05/09/17 20:41; Start 05/08/17 at 21:00 Fluoxetine HCl (PROzac) 10 mg DAILY PO Last administered on 05/10/17 09:48; Start 05/08/17 at 15:30 Ibuprofen (Motrin) 200 mg PRN TID PRN PO PAIN; Start 05/08/17 at 15:15 Albuterol/ Ipratropium (Duoneb) 3 ml RTQID NEB Last administered on 05/10/17 05:36; Start 05/08/17 at 16:00 Albuterol Sulfate (Ventolin) 2.5 mg PRN Q4HRS PRN NEB SHORTNESS OF BREATH; Start 05/08/17 at 15:15 Methylprednisolone Sodium Succinate (SOLU-Medrol 40MG VIAL) 30 mg Q8HRS IV Last administered on 05/10/17 06:00; Start 05/09/17 at 14:00; Stop 05/10/17 at 08:22; Status DC Doxycycline Hyclate (Vibra-Tab) 100 mg BID PO Last administered on 05/10/17 09 :48; Start 05/09/17 at 12:15 Methylprednisolone Sodium Succinate (SOLU-Medrol 40MG VIAL) 30 mg [id number] IV Last administered on 05/10/17 09:48; Start 05/10/17 at 08:45; Stop 05/10/17 at 10:55; Status DC Ranolazine (Ranexa) 500 mg BID PO ; Start 05/10/17 at 21:00 Atorvastatin Calcium (Lipitor) 40 mg QHS PO ; Start 05/10/17 at 21:00 Prednisone (Prednisone) 10 mg 1X ONCE PO ; Start 05/10/17 at 17:00; Stop at 17:01 Prednisone (Prednisone) 20 mg 1X ONCE PO ; Start 05/10/17 at 17:00; Stop at 17:01 Prednisone (Prednisone) 20 mg BID PO ; Start 05/11/17 at 09:00; Stop 05/13/17 at 08:59 Active Scripts Active Reported Ibuprofen 400 Mg Tablet 0.5 Tab PO TID PRN Spiriva (Tiotropium [place]) 18 Mcg Cap.w.dev 1 Cap IH DAILY Fluoxetine Hcl 10 Mg Capsule 1 Cap PO DAILY Aspirin 81 Mg Tab.chew 81 Mg PO HS Daliresp (Roflumilast) 500 Mcg Tablet 1 Tab PO DAILY Albuterol Sulfate Conc Neb Soln (Albuterol Sulfate) 2.5 Mg/0.5 Ml Vial.neb 1 Vial NEB Q4HRS PRN Vitals/I & O Vital Sign - Last 24 Hours 05/09/17 05/09/17 05/09/17 05/09/17 18:54 19:10 20:29 22:45 Temp 98.4 98.7 Pulse 96 100 Resp 22 20 B/P (MAP) 124/66 (85) 118/58 (78) Pulse Ox 98 96 97 O2 Delivery Room Air Nasal Cannula Room Air Nasal Cannula O2 Flow Rate 2.0 2.0 21.0 2.0 05/10/17 05/10/17 05/10/17 05/10/17 05:37 06:06 07:20 12:25 Temp 97.9 99.4 Pulse 96 110 Resp 20 20 B/P (MAP) 120/61 (80) 117/64 (81) Pulse Ox 98 96 96 O2 Delivery Room Air Nasal Cannula Nasal Cannula Nasal Cannula O2 Flow Rate 2.0 2.0 2.0 2.0 Intake and Output 05/09/17 05/09/17 05/10/17 15:00 23:00 07:00 Intake Total 840 ml 840 ml 300 ml Output Total 800 ml 1000 ml 400 ml Balance 40 ml -160 ml -100 ml BRI ALEXANDRE DO May 10, 2017 16:50
[2017-05-10] MEDS ORDERED: predniSONE 10 MG TABLET PO ONE (17:00)
[2017-05-10] MEDS ORDERED: predniSONE 20 MG TABLET PO ONE (17:00)
[2017-05-10 18:41] VITALS: BP 117/67
[2017-05-10] MEDS: ASPIRIN 81 MG TAB.CHEW PO SCH (20:20)
[2017-05-10] MEDS: RANOLAZINE 500 MG TAB.ER.12H PO SCH (20:21)
[2017-05-10] MEDS ORDERED: ATORVASTATIN CALCIUM 20 MG TABLET PO SCH (21:00)
[2017-05-11] MEDS: ALPRAZolam 0.25 MG TABLET PO PRN (04:39)
[2017-05-11 05:14] VITALS: BP 120/77
[2017-05-11] MEDS: IPRATRPIUM/ALBUTEROL 0.5/2.5MG 3 ML NEBU. NEB SCH (05:21)
[2017-05-11 06:19] LABS: BASO % 0 % (0-3); EOS % 0 % (0-3); HEMATOCRIT 34.6 % (39.0-53.0); HEMOGLOBIN 11.5 g/dL (13.0-17.5); LYMPH % 8 % (24-48); MEAN CORPUSCULAR HEMOGLOBIN 31 pg (25-35); MEAN CORPUSCULAR HGB CONC 33 g/dL (31-37); MEAN CORPUSCULAR VOLUME 93 fL (79-100); MONO % 8 % (0-9); NEUT # 11.4 x10^3uL (1.8-7.7); NEUT % 85 % (31-73); PLATELET COUNT 255 x10^3/uL (140-400); RED BLOOD COUNT 3.74 x10^6/uL (4.30-5.70); RED CELL DISTRIBUTION WIDTH 14.5 % (11.5-14.5); WHITE BLOOD COUNT 13.5 x10^3/uL (4.0-11.0)
[2017-05-11 06:22] LABS: ALBUMIN 2.7 g/dL (3.4-5.0); ALBUMIN/GLOBULIN RATIO 0.9 (1.0-1.7); CALCIUM 8.4 mg/dL (8.5-10.1); CREATININE 0.7 mg/dL (0.7-1.3); GFR 112.1; POTASSIUM 4.7 mmol/L (3.5-5.1); TOTAL BILIRUBIN 0.4 mg/dL (0.2-1.0); TOTAL PROTEIN 5.6 g/dL (6.4-8.2)
[2017-05-11] MEDS: ROFLUMILAST 500 MCG TABLET PO SCH (08:50)
[2017-05-11] MEDS: FLUoxetine HCL 10 MG CAPSULE PO SCH (08:51)
[2017-05-11] MEDS: DOXYCYCLINE HYCLATE 100 MG TABLET PO SCH (08:51)
[2017-05-11] MEDS: RANOLAZINE 500 MG TAB.ER.12H PO SCH (08:51)
[2017-05-11] MEDS ORDERED: predniSONE 20 MG TABLET PO SCH (09:00)
[2017-05-11 10:25] VITALS: BP 123/70
--- NOTE | 2017-05-11 14:14 | PDOC3 ---
Discharge Summary Visit Information Date of Admission: May 07, 2017 Date of Discharge: May 11, 2017 Admitting Diagnosis: Chest Pain, anginal, Copd Final Diagnosis Problems Medical Problems: (1) Chest pain Status: Acute (2) COPD exacerbation Status: Acute (3) acute on chronic hypoxic respiratory failure #4 coronary artery disease will need a catheter in the future #5 underweight with moderate protein calorie malnutrition #6 anxiety #7 left midlung infiltrate #8 his weakness #9 self-care deficit Status: Acute Problems: Brief Hospital Course Allergies Allergies Coded Allergies Type Severity Reaction Last Updated Verified sertraline Allergy Intermediate 05/08/17 Yes Vital Signs Vital Signs Date Time Temp Pulse Resp B/P (MAP) Pulse Ox O2 Delivery O2 Flow Rate FiO2 05/11/17 10:25 97.0 96 20 123/70 (87) 96 Nasal Cannula 2.0 Lab Results Laboratory Tests Test 05/10/17 06:15 05/11/17 05:53 White Blood Count 20.4 x10^3/uL (4.0-11.0) 13.5 x10^3/uL (4.0-11.0) Red Blood Count 4.04 x10^6/uL (4.30-5.70) 3.74 x10^6/uL (4.30-5.70) Hemoglobin 12.2 g/dL (13.0-17.5) 11.5 g/dL (13.0-17.5) Hematocrit 37.3 % (39.0-53.0) 34.6 % (39.0-53.0) Mean Corpuscular Volume 92 fL (79-100) 93 fL (79-100) Mean Corpuscular Hemoglobin 30 pg (25-35) 31 pg (25-35) Mean Corpuscular Hemoglobin Concent 33 g/dL (31-37) 33 g/dL (31-37) Red Cell Distribution Width 14.7 % (11.5-14.5) 14.5 % (11.5-14.5) Platelet Count 280 x10^3/uL (140-400) 255 x10^3/uL (140-400) Neutrophils (%) (Auto) 92 % (31-73) 85 % (31-73) Lymphocytes (%) (Auto) 4 % (24-48) 8 % (24-48) Monocytes (%) (Auto) 5 % (0-9) 8 % (0-9) Eosinophils (%) (Auto) 0 % (0-3) 0 % (0-3) Basophils (%) (Auto) 0 % (0-3) 0 % (0-3) Neutrophils # (Auto) 18.7 x10^3uL (1.8-7.7) 11.4 x10^3uL (1.8-7.7) Lymphocytes # (Auto) 0.8 x10^3/uL (1.0-4.8) 1.0 x10^3/uL (1.0-4.8) Monocytes # (Auto) 0.9 x10^3/uL (0.0-1.1) 1.0 x10^3/uL (0.0-1.1) Eosinophils # (Auto) 0.0 x10^3/uL (0.0-0.7) 0.0 x10^3/uL (0.0-0.7) Basophils # (Auto) 0.0 x10^3/uL (0.0-0.2) 0.0 x10^3/uL (0.0-0.2) Segmented Neutrophils % 92 % (35-66) Band Neutrophils % 0 % (0-9) Lymphocytes % 5 % (24-48) Monocytes % 3 % (0-10) Eosinophils % 0 % (0-5) Basophils % 0 % (0-3) Platelet Estimate Adequate (ADEQUATE) Sodium Level 141 mmol/L (136-145) 139 mmol/L (136-145) Potassium Level 4.2 mmol/L (3.5-5.1) 4.7 mmol/L (3.5-5.1) Chloride Level 104 mmol/L (98-107) 102 mmol/L (98-107) Carbon Dioxide Level 34 mmol/L (21-32) 36 mmol/L (21-32) Anion Gap 3 (6-14) 1 (6-14) Blood Urea Nitrogen 19 mg/dL (8-26) 24 mg/dL (8-26) Creatinine 0.8 mg/dL (0.7-1.3) 0.7 mg/dL (0.7-1.3) Estimated GFR (Cockcroft-Gault) 96.1 112.1 BUN/Creatinine Ratio 24 (6-20) 34 (6-20) Glucose Level 144 mg/dL (70-99) 108 mg/dL (70-99) Calcium Level 8.7 mg/dL (8.5-10.1) 8.4 mg/dL (8.5-10.1) Magnesium Level 1.8 mg/dL (1.8-2.4) 2.0 mg/dL (1.8-2.4) Total Bilirubin 0.2 mg/dL (0.2-1.0) 0.4 mg/dL (0.2-1.0) Aspartate Amino Transf (AST/SGOT) 12 U/L (15-37) 18 U/L (15-37) Alanine Aminotransferase (ALT/SGPT) 24 U/L (16-63) 34 U/L (16-63) Alkaline Phosphatase 56 U/L (46-116) 50 U/L (46-116) Total Protein 6.1 g/dL (6.4-8.2) 5.6 g/dL (6.4-8.2) Albumin 3.0 g/dL (3.4-5.0) 2.7 g/dL (3.4-5.0) Albumin/Globulin Ratio 1.0 (1.0-1.7) 0.9 (1.0-1.7) Brief Hospital Course Mr. Sherwood is a 67 old male who presented with chest pain and shortness of breath. He was found to be hypoxic and also to have a left midlung infiltrate. He was treated with antibiotics, steroids, and breathing treatments,. He was also seen in consultation by the cardiac service. He was seen also by PT and OT. Nutritional supplements were prescribed for him secondary to his poor nutritional status. He was also treated for his anxiety. Case management also saw him as he requested to be placed in a nursing facility. [facility]. He would be a great candidate to go for rehabilitation and so was discharged to [place]. Discharge Information Condition at Discharge: Improved, Stable Follow Up: As Needed Disposition/Orders: D/C to Another Facility Dischare Medications Current Medications Aspirin (Children'S Aspirin) 324 mg 1X ONCE PO Last administered on 05/07/17t 15:33; Start 05/07/17 at 15:40; Stop 05/07/17 at 15:41; Status DC Methylprednisolone Sodium Succinate (SOLU-Medrol 125MG VIAL) 125 mg 1X ONCE IV Last administered on 05/07/17 15:32; Start 05/07/17 at 15:40; Stop 05/07/17 at 15:41; Status DC Albuterol/ Ipratropium (Duoneb) 3 ml STK-MED ONCE .ROUTE ; Start 05/07/17 at 15: 08; Stop 05/07/17 at 15:09; Status DC Sodium Chloride 1,000 ml @ 1,000 mls/hr 1X ONCE IV Last administered on 16:40; Start 05/07/17 at 16:40; Stop 05/07/17 at 17:39; Status DC Albuterol Sulfate (Ventolin) 2.5 mg PRN Q4HRS PRN NEB SHORTNESS OF BREATH; Start 05/07/17 at 21:00; Stop 05/08/17 at 15:12; Status DC Methylprednisolone Sodium Succinate (SOLU-Medrol 40MG VIAL) 40 mg Q8HRS IV Last administered on 05/09/17 05:53; Start 05/07/17 at 22:00; Stop 05/09/17 at 11:51; Status DC Acetaminophen (Tylenol) 650 mg PRN Q4HRS PRN PO PAIN / TEMP Last administered on 05/09/17 20:41; Start 05/07/17 at 20:45; Stop 05/11/17 at 11:44; Status DC Alprazolam (Xanax) 0.25 mg PRN Q8HRS PRN PO ANXIETY / AGITATION Last administered on 05/11/17 04:39; Start 05/07/17 at 21:15; Stop 05/11/17 at 11:44 ; Status DC Albuterol Sulfate (Ventolin) 2.5 mg PRN Q4HRS PRN NEB SHORTNESS OF BREATH; Start 05/08/17 at 15:15; Stop 05/08/17 at 15:15; Status DC Aspirin (Children'S Aspirin) 81 mg HS PO Last administered on 05/10/17 20:20; Start 05/08/17 at 21:00; Stop 05/11/17 at 11:44; Status DC Fluoxetine HCl (PROzac) 10 mg DAILY PO Last administered on 05/11/17 08:51; Start 05/08/17 at 15:30; Stop 05/11/17 at 11:44; Status DC Ibuprofen (Motrin) 200 mg PRN TID PRN PO PAIN; Start 05/08/17 at 15:15; Stop at 11:44; Status DC Albuterol/ Ipratropium (Duoneb) 3 ml RTQID NEB Last administered on 05/10/17 19:47; Start 05/08/17 at 16:00; Stop 05/11/17 at 11:44; Status DC Albuterol Sulfate (Ventolin) 2.5 mg PRN Q4HRS PRN NEB SHORTNESS OF BREATH; Start 05/08/17 at 15:15; Stop 05/11/17 at 11:44; Status DC Methylprednisolone Sodium Succinate (SOLU-Medrol 40MG VIAL) 30 mg Q8HRS IV Last administered on 05/10/17 06:00; Start 05/09/17 at 14:00; Stop 05/10/17 at 08:22; Status DC Doxycycline Hyclate (Vibra-Tab) 100 mg BID PO Last administered on 05/11/17 08 :51; Start 05/09/17 at 12:15; Stop 05/11/17 at 11:44; Status DC Methylprednisolone Sodium Succinate (SOLU-Medrol 40MG VIAL) 30 mg [id number] IV Last administered on 05/10/17 09:48; Start 05/10/17 at 08:45; Stop 05/10/17 at 10:55; Status DC Ranolazine (Ranexa) 500 mg BID PO Last administered on 05/11/17 08:51; Start 05/10/17 at 21:00; Stop 05/11/17 at 11:44; Status DC Atorvastatin Calcium (Lipitor) 40 mg QHS PO Last administered on 05/10/17 20: 20; Start 05/10/17 at 21:00; Stop 05/11/17 at 11:44; Status DC Prednisone (Prednisone) 10 mg 1X ONCE PO Last administered on 05/10/17 17:16 ; Start 05/10/17 at 17:00; Stop 05/10/17 at 17:02; Status DC Prednisone (Prednisone) 20 mg 1X ONCE PO Last administered on 05/10/17 17:16 ; Start 05/10/17 at 17:00; Stop 05/10/17 at 17:02; Status DC Prednisone (Prednisone) 20 mg BID PO Last administered on 05/11/17 08:51; Start 05/11/17 at 09:00; Stop 05/11/17 at 11:44; Status DC Active Scripts Active Reported Ibuprofen 400 Mg Tablet 0.5 Tab PO TID PRN Spiriva (Tiotropium [place]) 18 Mcg Cap.w.dev 1 Cap IH DAILY Fluoxetine Hcl 10 Mg Capsule 1 Cap PO DAILY Aspirin 81 Mg Tab.chew 81 Mg PO HS Daliresp (Roflumilast) 500 Mcg Tablet 1 Tab PO DAILY Albuterol Sulfate Conc Neb Soln (Albuterol Sulfate) 2.5 Mg/0.5 Ml Vial.neb 1 Vial NEB Q4HRS PRN Patient Instructions Patient Instuctions Patient was discharged to [facility]. He will be on senior care services there. Her medications please see MRad. He was discharged on a steroid taper as well as antibiotics. BRI ALEXANDRE DO May 11, 2017 14:14
== END 2017-05-11 11:30 | DRG 189 ==
LOC: ER 14:43 → 1 SOUTH 17:53
PROVIDERS: ADMIT Internal Medicine; ATTEND Internal Medicine
DX: J96.21 Acute and chronic respiratory failure with hypoxia (principal); J18.9 Pneumonia, unspecified organism; J44.1 Chronic obstructive pulmonary disease with (acute) exacerbation; Z68.1 Body mass index [BMI] 19.9 or less, adult; J44.0 Chronic obstructive pulmonary disease with (acute) lower respiratory infection; E44.0 Moderate protein-calorie malnutrition; I10 Essential (primary) hypertension; F41.9 Anxiety disorder, unspecified; F17.200 Nicotine dependence, unspecified, uncomplicated; F32.9 Major depressive disorder, single episode, unspecified; I25.119 Atherosclerotic heart disease of native coronary artery with unspecified angina pectoris; I48.0 Paroxysmal atrial fibrillation; Z80.0 Family history of malignant neoplasm of digestive organs; Z80.1 Family history of malignant neoplasm of trachea, bronchus and lung; Z91.19 Patient's noncompliance with other medical treatment and regimen; Z68.22 Body mass index [BMI] 22.0-22.9, adult; Z99.81 Dependence on supplemental oxygen; Z88.8 Allergy status to other drugs, medicaments and biological substances; Z88.0 Allergy status to penicillin
CPT/HCPCS: 36415; 71010; 71020; 80053; 80061; 81001; 83735; 84484; 85007; 85027; 93005; 93306; 94640; 96361; 96374; J2920; J2930; J7512; J7620; 99291-25; J7030

== ENCOUNTER 2017-09-03 15:32 | Inpatient (IN) | payer MEDICARE ==
[~2017-09-03] VITALS: Ht 167.6 cm; Wt 49.5 kg
[~2017-09-03 15:32] MED LIST: ALBU2.5V14 NEB; ASPI-630 PO; FLUO10CA7 PO; IBUP400T18 PO; ROFL500T7 PO; TIOT18CA IH
[2017-09-03] MEDS ORDERED: IPRATRPIUM/ALBUTEROL 0.5/2.5MG 3 ML NEBU. ONE (15:40)
[2017-09-03] MEDS ORDERED: IPRATRPIUM/ALBUTEROL 0.5/2.5MG 3 ML NEBU. NEB ONE (15:45)
[2017-09-03] MEDS ORDERED: methylPREDNISolone SOD SUCC PF 125 MG/2 ML VIAL. IV ONE (15:45)
[2017-09-03 16:27] LABS: BASO % 1 % (0-3); EOS # 0.2 x10^3/uL (0.0-0.7); EOS % 3 % (0-3); HEMATOCRIT 39.2 % (39.0-53.0); HEMOGLOBIN 13.1 g/dL (13.0-17.5); LYMPH # 1.3 x10^3/uL (1.0-4.8); LYMPH % 23 % (24-48); MEAN CORPUSCULAR HEMOGLOBIN 31 pg (25-35); MEAN CORPUSCULAR HGB CONC 34 g/dL (31-37); MEAN CORPUSCULAR VOLUME 94 fL (79-100); MONO # 0.6 x10^3/uL (0.0-1.1); MONO % 10 % (0-9); NEUT # 3.8 x10^3uL (1.8-7.7); NEUT % 64 % (31-73); PLATELET COUNT 265 x10^3/uL (140-400); RED BLOOD COUNT 4.19 x10^6/uL (4.30-5.70); RED CELL DISTRIBUTION WIDTH 13.7 % (11.5-14.5); WHITE BLOOD COUNT 5.9 x10^3/uL (4.0-11.0)
[2017-09-03 16:42] LABS: ALBUMIN 3.5 g/dL (3.4-5.0); ALBUMIN/GLOBULIN RATIO 1.1 (1.0-1.7); CALCIUM 8.9 mg/dL (8.5-10.1); CREATININE 0.7 mg/dL (0.7-1.3); GFR 112.1; POTASSIUM 5.3 mmol/L (3.5-5.1); TOTAL BILIRUBIN 0.3 mg/dL (0.2-1.0); TOTAL PROTEIN 6.7 g/dL (6.4-8.2)
[2017-09-03 18:25] VITALS: BP 129/83
--- NOTE | 2017-09-03 18:43 | PHYS DOC ---
Past History Past Medical History: Anxiety, Asthma, COPD Past Surgical History: Other Alcohol Use: None Drug Use: None Adult General Chief Complaint Chief Complaint: SHORTNESS OF BREATH HPI HPI Patient is a 67-year-old male with a history of COPD brought from home by EMS with the complaint of shortness of air. Patient states he ran out of oxygen and his oxygen concentrator is broken. This happened sometime today. Unclear whether or not he has medication for his nebulizer at home. He lives with his daughter and he doesn't know where she is. He wasn't able to call her because she left her phone at home when she went to take her kids somewhere he stated. [facility]. He states there has been nothing out of the ordinary with his health prior to the onset of his shortness of air today. Patient does not know what medications he is taking. Review of Systems Review of Systems Constitutional: Denies fever or chills [] Eyes: Denies change in visual acuity, redness, or eye pain [] HENT: Denies nasal congestion or sore throat [] Respiratory: Positive for both cough and shortness of air Cardiovascular: States he does have some pain on the left side of his chest, he has had it for several months, they want him to see a painter interior finish GI: Denies abdominal pain, nausea, vomiting, bloody stools or diarrhea [] : Denies dysuria or hematuria [] Musculoskeletal: Denies back pain or joint pain [] Integument: Denies rash or skin lesions [] Neurologic: Denies headache, focal weakness or sensory changes [] Current Medications Current Medications Current Medications Medications (Trade) Dose Ordered Sig/Frank Start Time Stop Time Status Last Admin Dose Admin Albuterol/ Ipratropium (Duoneb) 3 ml RTQID 09/03/17 20:00 09/03/17 20:00 DC Guaifenesin (Mucinex Er) 600 mg Q12HR 09/03/17 21:00 09/03/17 21:00 DC Methylprednisolone Sodium Succinate (SOLU-Medrol 40MG VIAL) 40 mg Q12HR 09/03/17 21:00 09/03/17 21:00 DC Methylprednisolone Sodium Succinate (SOLU-Medrol 125MG VIAL) 125 mg 1X ONCE 09/03/17 15:45 09/03/17 15:46 DC 09/03/17 16:31 125 MG Allergies Allergies Allergies Coded Allergies Type Severity Reaction Last Updated Verified sertraline Allergy Intermediate 05/08/17 Yes Physical Exam Physical Exam Constitutional: Thin/cachectic man who is moderately dyspneic on the cart at rest. Alert and mentating normally, warm and dry. HENT: Normocephalic, atraumatic, bilateral external ears normal, nose normal. [ ] Eyes: conjunctiva normal, no discharge. [] Neck: Normal range of motion, no stridor. [] Cardiovascular:Heart rate regular rhythm, no murmur [] Lungs & Thorax: Diminished breath sounds throughout, prolonged expiratory phase , inspiratory and expiratory wheezes present throughout Abdomen: soft, no tenderness, no masses, no pulsatile masses. [] Skin: Warm, dry, no erythema, no rash. [] Extremities: No tenderness, no cyanosis, no clubbing, ROM intact, no edema. [] Neurologic: Alert and oriented X 3, normal motor function, no focal deficits noted. [] Current Patient Data Vital Signs Vital Signs Date Time Temp Pulse Resp B/P (MAP) Pulse Ox O2 Delivery O2 Flow Rate FiO2 09/03/17 16:09 98.3 79 20 98 Room Air Lab Results Laboratory Tests Test 09/03/17 16:09 White Blood Count 5.9 x10^3/uL (4.0-11.0) Red Blood Count 4.19 x10^6/uL (4.30-5.70) L Hemoglobin 13.1 g/dL (13.0-17.5) Hematocrit 39.2 % (39.0-53.0) Mean Corpuscular Volume 94 fL (79-100) Mean Corpuscular Hemoglobin 31 pg (25-35) Mean Corpuscular Hemoglobin Concent 34 g/dL (31-37) Red Cell Distribution Width 13.7 % (11.5-14.5) Platelet Count 265 x10^3/uL (140-400) Neutrophils (%) (Auto) 64 % (31-73) Lymphocytes (%) (Auto) 23 % (24-48) L Monocytes (%) (Auto) 10 % (0-9) H Eosinophils (%) (Auto) 3 % (0-3) Basophils (%) (Auto) 1 % (0-3) Neutrophils # (Auto) 3.8 x10^3uL (1.8-7.7) Lymphocytes # (Auto) 1.3 x10^3/uL (1.0-4.8) Monocytes # (Auto) 0.6 x10^3/uL (0.0-1.1) Eosinophils # (Auto) 0.2 x10^3/uL (0.0-0.7) Basophils # (Auto) 0.0 x10^3/uL (0.0-0.2) Sodium Level 142 mmol/L (136-145) Potassium Level 5.3 mmol/L (3.5-5.1) H Chloride Level 105 mmol/L (98-107) Carbon Dioxide Level 35 mmol/L (21-32) H Anion Gap 2 (6-14) L Blood Urea Nitrogen 18 mg/dL (8-26) Creatinine 0.7 mg/dL (0.7-1.3) Estimated GFR (Cockcroft-Gault) 112.1 BUN/Creatinine Ratio 26 (6-20) H Glucose Level 101 mg/dL (70-99) H Calcium Level 8.9 mg/dL (8.5-10.1) Total Bilirubin 0.3 mg/dL (0.2-1.0) Aspartate Amino Transferase (AST) 13 U/L (15-37) L Alanine Aminotransferase (ALT) 21 U/L (16-63) Alkaline Phosphatase 73 U/L (46-116) Creatine Kinase 34 U/L (39-308) L Creatine Kinase MB (Mass) 1.4 ng/mL (0.0-3.6) Creatine Kinase MB Relative Index 4.1 % (0-4) H Troponin I Quantitative < 0.017 ng/mL (0-0.055) LE-Gjt-A-Type Natriuretic Peptide 193 pg/mL (0-124) H Total Protein 6.7 g/dL (6.4-8.2) Albumin 3.5 g/dL (3.4-5.0) Albumin/Globulin Ratio 1.1 (1.0-1.7) EKG EKG 12-lead EKG read by me. Sinus rhythm. Heart rate 75. There are no acute ST or T wave changes indicative of ischemia or infarction. No STEMI. 1649[] Radiology/Procedures Radiology/Procedures One view portable chest x-ray read by me. Hyper inflation. Heart size is normal. Lung wisdom are clear. Scarring in the right base. Nothing acute.[] Course & Med Decision Making Course & Med Decision Making Pertinent Labs and Imaging studies reviewed. (See chart for details) 67-year-old male with oxygen-dependent COPD presents with shortness of air, dyspnea, and wheezing. He was put on oxygen with improvement of his sats. Reportedly his sat was in the low 80s in the field on room air. He was given an albuterol treatment, IV steroids. He felt better. He was mentating normally at all times, asking if he could have a drink of coffee. I believe the patient requires admission for treatment of his exacerbation of COPD. Patient is agreeable to that. I discussed the case with Dr. Mccollum, who will admit the patient. I wrote bridge orders. [] Dragon Disclaimer Dragon Disclaimer This chart was dictated in whole or in part using Voice Recognition software in a busy, high-work load, and often noisy Emergency Department environment. It may contain unintended and wholly unrecognized errors or omissions. Departure Departure: Impression: Primary Impression: Acute exacerbation of chronic obstructive pulmonary disease (C... Disposition: ADMITTED INPATIENT Condition: STABLE Referrals: PCP,NO (PCP) HIWOT FISHER MD Sep 03, 2017 18:43
[2017-09-03] MEDS ORDERED: IBUP-1227 PO (18:55)
[2017-09-03] MEDS ORDERED: ALPR2TAB2 PO (18:57)
[2017-09-03] MEDS ORDERED: TRAZ50TA15 PO (19:06)
[2017-09-03] MEDS ORDERED: ALPRAZolam 0.5 MG TABLET PO PRN (20:00)
[2017-09-03] MEDS ORDERED: ALBUTEROL SULFATE 2.5 MG/3 ML NEBU. NEB PRN (20:00)
[2017-09-03] MEDS ORDERED: IPRATRPIUM/ALBUTEROL 0.5/2.5MG 3 ML NEBU. NEB SCH (20:00)
[2017-09-03] MEDS: methylPREDNISolone SOD SUCC PF 40 MG/ML VIAL. IV SCH (20:21)
[2017-09-03] MEDS: IPRATRPIUM/ALBUTEROL 0.5/2.5MG 3 ML NEBU. NEB SCH (20:47)
[2017-09-03] MEDS ORDERED: LORA0.5T PO (22:43)
[2017-09-03 23:24] VITALS: BP 129/69
[2017-09-04 05:23] VITALS: BP 107/57
[2017-09-04] MEDS: IPRATRPIUM/ALBUTEROL 0.5/2.5MG 3 ML NEBU. NEB SCH ×4 (05:52→20:42)
[2017-09-04 07:09] LABS: BASO % 0 % (0-3); EOS % 0 % (0-3); HEMATOCRIT 35.4 % (39.0-53.0); HEMOGLOBIN 12.1 g/dL (13.0-17.5); LYMPH # 0.6 x10^3/uL (1.0-4.8); LYMPH % 12 % (24-48); MEAN CORPUSCULAR HEMOGLOBIN 32 pg (25-35); MEAN CORPUSCULAR HGB CONC 34 g/dL (31-37); MEAN CORPUSCULAR VOLUME 93 fL (79-100); MONO # 0.2 x10^3/uL (0.0-1.1); MONO % 4 % (0-9); NEUT % 83 % (31-73); PLATELET COUNT 239 x10^3/uL (140-400); RED CELL DISTRIBUTION WIDTH 13.4 % (11.5-14.5); WHITE BLOOD COUNT 4.8 x10^3/uL (4.0-11.0)
[2017-09-04 07:21] LABS: ALBUMIN 3.1 g/dL (3.4-5.0); CALCIUM 8.4 mg/dL (8.5-10.1); CREATININE 0.7 mg/dL (0.7-1.3); GFR 112.1; MAGNESIUM 1.9 mg/dL (1.8-2.4); POTASSIUM 4.6 mmol/L (3.5-5.1); TOTAL BILIRUBIN 0.4 mg/dL (0.2-1.0); TOTAL PROTEIN 6.1 g/dL (6.4-8.2)
--- NOTE | 2017-09-04 07:40 | EKG ---
[address] [address] Test Date: 2017-09-03 Test Time: 16:49:57 Pat Name: JR ERIC Department: Room: Gender: M Clinical Specialist: : 1950 Requested By: HIWOT FISHER Order Number: [id number] Reading MD: Measurements Intervals [place] Rate: 75 P: 90 [place]: 144 QRS: 78 QRSD: 86 T: 2 QT: 342 QTc: 384 Interpretive Statements SINUS RHYTHM QRS(T) CONTOUR ABNORMALITY CONSISTENT WITH ANTEROSEPTAL INFARCT PROBABLY OLD T ABNORMALITY IN INFERIOR LEADS ABNORMAL ECG RI6.01 No previous ECG available for comparison
[2017-09-04] MEDS: ASPIRIN 81 MG TAB.CHEW PO SCH (07:52)
[2017-09-04] MEDS: LORazepam 0.5 MG TABLET PO SCH ×2 (08:39→19:30)
[2017-09-04] MEDS: methylPREDNISolone SOD SUCC PF 40 MG/ML VIAL. IV SCH (08:39)
[2017-09-04] MEDS: IBUPROFEN 200 MG TABLET PO SCH (08:40)
[2017-09-04] MEDS: FLUoxetine HCL 10 MG CAPSULE PO SCH (08:40)
[2017-09-04] MEDS: ROFLUMILAST 500 MCG TABLET PO SCH (08:40)
--- NOTE | 2017-09-04 08:50 | RAD ---
AP portable chest radiograph 09/03/2017 Clinical History: Shortness of breath. An AP portable erect digital radiograph of the chest was obtained. Comparison study is dated 05/09/2017. The cardiac silhouette is normal in size. The thoracic aorta is minimally tortuous. Emphysematous changes are seen involving both lungs. No acute pulmonary infiltrate is seen. No pleural effusion or pneumothorax is noted. The osseous structures are unchanged. Impression: Emphysematous changes. No acute pulmonary infiltrate is seen.
[2017-09-04 11:39] VITALS: BP 108/62
--- NOTE | 2017-09-04 14:02 | HP ---
ADMIT DATE: 09/03/2017 DATE OF ADMISSION: 09/03/2017 REASON FOR ADMISSION: Shortness of breath, COPD. HISTORY OF PRESENT ILLNESS: This is a 67-year-old male who has had previous admissions to [facility] for exacerbation of COPD. He ran out of his oxygen yesterday and became progressively short of breath. He uses about 2 liters at home and coming to the Emergency Room. He was quite short of breath. PAST MEDICAL HISTORY: COPD chronic oxygen requiring, chronic hypoxic respiratory failure, former smoker. PAST SURGICAL HISTORY: Multiple inguinal hernia repairs. ALLERGIES: ZOLOFT. MEDICATIONS: Reviewed and are available on the [facility]. FAMILY HISTORY: Two brothers and sisters. Younger brother of hepatitis C. Older brother and younger sisters are healthy. Father in his 60s of lung cancer. Mother in her 80s of stomach cancer. SOCIAL HISTORY: , has 1 son and 3 daughters. He lives with his daughter. He did smoke for 35 years and quit in 1998. He used to also be a heavy drinker and quit in 1998. 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 [facility]. AND REVIEW OF SYSTEMS: Positive for shortness of breath and otherwise negative. No mucus production. Negative fever. Negative sore throat. OBJECTIVE: VITAL SIGNS: Blood pressure 108/62, pulse 74, temperature 97.9, pulse ox is 96% on 2 liters. Height is 66 inches, weight 103 pounds, BMI 16.6. GENERAL: Very emaciated gentleman, in no acute distress. He has his oxygen on. HEENT: His TMs were intact bilaterally. Nose was patent. Throat was clear. NECK: Supple without adenopathy. LUNGS: With coarse breath sounds. CARDIOVASCULAR: Regular rhythm and rate. ABDOMEN: Soft, nontender. EXTREMITIES: Without edema. ASSESSMENT: 1. Acute exacerbation of chronic obstructive pulmonary disease. 2. Chronic hypoxia and ran out of his oxygen. 3. Protein-calorie malnutrition with a BMI of 16.6, severe. PLAN: We will have to make arrangements for him to get his oxygen tomorrow. He is on steroids and breathing treatments. We will go ahead and cut those down as he is doing much better and we will add some supplements as well. BRI ALEXANDRE DO DR: Katelyn JOB#: [id number] / [id number]
[2017-09-04 15:43] VITALS: BP 112/56
[2017-09-04] MEDS ORDERED: ONDANSETRON ODT 4 MG TAB.RAPDIS PO PRN (17:30)
[2017-09-04] MEDS: traZODone 50 MG TABLET. PO PRN (19:30)
[2017-09-04] MEDS: guaiFENesin DM 600/30MG 1 TAB TAB.ER.12H PO SCH (20:06)
[2017-09-04 20:50] VITALS: BP 117/45
[2017-09-04 23:43] VITALS: BP 106/48
[2017-09-05] MEDS: IPRATRPIUM/ALBUTEROL 0.5/2.5MG 3 ML NEBU. NEB SCH ×4 (05:22→19:59)
[2017-09-05] MEDS ORDERED: methylPREDNISolone SOD SUCC PF 40 MG/ML VIAL. IV SCH (06:00)
[2017-09-05 06:06] VITALS: BP 108/58
[2017-09-05] MEDS: guaiFENesin DM 600/30MG 1 TAB TAB.ER.12H PO SCH ×2 (09:24→20:25)
[2017-09-05] MEDS: IBUPROFEN 200 MG TABLET PO SCH (09:24)
[2017-09-05] MEDS: ROFLUMILAST 500 MCG TABLET PO SCH (09:24)
[2017-09-05] MEDS: FLUoxetine HCL 10 MG CAPSULE PO SCH (09:24)
[2017-09-05] MEDS: ASPIRIN 81 MG TAB.CHEW PO SCH (09:24)
[2017-09-05] MEDS: LORazepam 0.5 MG TABLET PO SCH ×2 (09:24→20:24)
[2017-09-05 10:42] VITALS: BP 112/51
[2017-09-05 15:12] VITALS: BP 115/67
[2017-09-05 19:41] VITALS: BP 117/64
[2017-09-05] MEDS: methylPREDNISolone SOD SUCC PF 40 MG/ML VIAL. IV SCH (20:24)
[2017-09-05] MEDS: traZODone 50 MG TABLET. PO PRN (20:24)
[2017-09-05] MEDS: DOXYCYCLINE HYCLATE 100 MG TABLET PO SCH (20:25)
[2017-09-05] MEDS ORDERED: MONTELUKAST 10 MG TABLET. PO SCH (21:00)
[2017-09-05 23:52] VITALS: BP 116/65
[2017-09-06 05:06] VITALS: BP 132/69
[2017-09-06] MEDS: methylPREDNISolone SOD SUCC PF 40 MG/ML VIAL. IV SCH (05:16)
[2017-09-06] MEDS: IPRATRPIUM/ALBUTEROL 0.5/2.5MG 3 ML NEBU. NEB SCH ×3 (05:42→16:00)
[2017-09-06 06:26] LABS: HEMATOCRIT 34.4 % (39.0-53.0); HEMOGLOBIN 11.5 g/dL (13.0-17.5); RED BLOOD COUNT 3.66 x10^6/uL (4.30-5.70); RED CELL DISTRIBUTION WIDTH 13.8 % (11.5-14.5); WHITE BLOOD COUNT 7.2 x10^3/uL (4.0-11.0)
[2017-09-06 06:39] LABS: ALBUMIN 3.1 g/dL (3.4-5.0); ALBUMIN/GLOBULIN RATIO 1.1 (1.0-1.7); CALCIUM 8.4 mg/dL (8.5-10.1); CREATININE 0.8 mg/dL (0.7-1.3); GFR 96.1; POTASSIUM 4.9 mmol/L (3.5-5.1); TOTAL BILIRUBIN 0.2 mg/dL (0.2-1.0); TOTAL PROTEIN 5.9 g/dL (6.4-8.2)
[2017-09-06] MEDS: ASPIRIN 81 MG TAB.CHEW PO SCH (07:58)
[2017-09-06] MEDS: LORazepam 0.5 MG TABLET PO SCH (07:58)
[2017-09-06] MEDS: DOXYCYCLINE HYCLATE 100 MG TABLET PO SCH (07:58)
[2017-09-06] MEDS: IBUPROFEN 200 MG TABLET PO SCH (07:58)
[2017-09-06] MEDS: guaiFENesin DM 600/30MG 1 TAB TAB.ER.12H PO SCH (07:58)
[2017-09-06] MEDS: ROFLUMILAST 500 MCG TABLET PO SCH (07:58)
[2017-09-06] MEDS: FLUoxetine HCL 10 MG CAPSULE PO SCH (07:59)
--- NOTE | 2017-09-06 10:26 | PN ---
DATE: 09/05/2017 DATE OF SERVICE: 09/05/2017 SUBJECTIVE: The patient is resting, propped up in bed. He was in a tripod position using accessory muscle. He clearly has shortness of breath and difficulty finishing his sentence. He has some chest tightness and wheezing. OBJECTIVE: GENERAL: When I examined him, he looked cachectic, but no jaundice, cyanosis, or thyromegaly. No jugular venous distension. No lower limb edema. VITAL SIGNS: His heart rate was 101, blood pressure was 115/67, temperature was 98.7, respiratory rate 20, and oxygen saturation was 96% on 2 liters of oxygen. HEAD, EYES, EARS, NOSE AND THROAT: Showed normocephalic, atraumatic. NECK: Supple. HEART: Showed normal first and second heart sounds with no gallop, rub, or murmur. CHEST: Showed central trachea, equally reduced expansion, reduced air entry, diffuse rhonchi, could not appreciate any crepitation. ABDOMEN: Scaphoid, soft, nontender. No guarding or rigidity. No organomegaly. Hernial orifice is intact. Bowel sounds normal. NEUROLOGIC: He is awake, alert, and responding appropriately. Cranial nerves are intact. He moves extremities without difficulty. He is clearly while sitting was in a tripod position using his accessory muscles. His intake over the last 24-hour was 1990, output was 1550. LABORATORY DATA: As of yesterday showed a white cell count of 4,800, hemoglobin 12, hematocrit 35, MCV 93, and platelet count 239,000. His chemistry showed a serum sodium 137, potassium 4.6, chloride 102, bicarbonate 34, anion gap of 1, BUN 22, creatinine 0.7, estimated GFR was 112 mL per minute, his glucose 168, calcium was 8.4, magnesium was 1.9. Total bilirubin, AST, ALT, alkaline phosphatase were normal. His total protein was 6.1, albumin was 3.1. His chest x-ray showed that he has emphysematous changes with no acute pulmonary infiltrates are seen. ASSESSMENT: Probably acute bronchitis, chronic obstructive pulmonary disease exacerbation, chronic hypoxic respiratory failure. PLAN: My plan is to basically increase his steroids to 40 mg IV twice a day. Continue with his nebulizer, albuterol, and Atrovent, and add Singulair and Mucinex, and repeat his labs tomorrow, and we will do a 6-minute walk tomorrow to qualify him for oxygen. LISA STEIN MD DR: DAVID/devaughn JOB#: [id number] / [id number]
[2017-09-06 11:11] VITALS: BP 107/54
[2017-09-06] MEDS ORDERED: FLU VACC QS2017-18 (36MOS+)/PF 0.5 ML SYRINGE. VAX IM ONE (14:30)
[2017-09-06 14:36] VITALS: BP 115/65
--- NOTE | 2017-09-07 10:06 | DS ---
DATE OF DISCHARGE: 09/06/2017 HOSPITAL COURSE: The patient is a 67-year-old male patient, who was admitted complaining of shortness of breath, claiming that he ran out of oxygen. [facility] He also complained of cough with scanty yellowish sputum, hypoxia. Therefore, we started him on oral doxycycline, IV Solu-Medrol, continued his bronchodilator. Our clinical case manager contacted his [employer] and apparently their set up mold technician has already been in his house and his concentrator is working well and a decision was made to discharge him home to continue with his oxygen supplementation, tapering course of steroid as well as oral doxycycline as well as his other medications. PHYSICAL EXAMINATION: GENERAL: When I saw him this afternoon, he was resting almost flat, comfortably in bed, in no apparent respiratory distress, slightly pale, cachectic, but no jaundice, cyanosis, or thyromegaly. No jugular venous distention. No limb edema. VITAL SIGNS: His heart rate was 97, blood pressure was 107/54, temperature was 98.2, respiratory rate 20, and oxygen saturation was 98% on 2 liters of oxygen. HEAD, EYES, EARS, NOSE AND THROAT: Showed normocephalic, atraumatic. NECK: Supple. HEART: Showed distant first and second heart sounds with no gallop, rub or murmur. CHEST: Shows central trachea, markedly reduced chest expansion ____ very few scattered rhonchi. ABDOMEN: Scaphoid, soft, nontender. No guarding or rigidity. No organomegaly. All hernial orifices intact. Bowel sounds normal. NEUROLOGIC: He was awake, alert, responding appropriately. All cranial nerves intact. EXTREMITIES: He moves extremities without difficulty. LABORATORY DATA: As of this morning showed a white cell count 7200, hemoglobin 11.5, hematocrit 34.4, MCV 94 and platelet count 251,000. His chemistry showed a serum sodium 140, potassium 4.9, chloride 102, bicarbonate 33, anion gap of 5, BUN 16, creatinine 0.8, estimated GFR was 96 mL per minute, his glucose 167, calcium was 8.4. Total bilirubin, AST, ALT, and alkaline phosphatase were normal. Total protein was 5.9, albumin 3.1. DISCHARGE MEDICATIONS: The patient was discharged home to continue on following medications: Albuterol sulfate 2.5 mg/0.5 mL by nebulizer every 4 hours, aspirin 81 mg once a day, fluoxetine 10 mg once a day, ibuprofen 200 mg as needed, lorazepam 0.5 mg twice a day for anxiety, Daliresp 500 mcg tablet once a day, tiotropium bromide for Spiriva HandiHaler 1 inhalation once a day and trazodone 50 mg at bedtime. He was also discharged on a tapering course of steroids in the form of prednisone 40 mg once a day for 2 days, 30 mg once a day for 3 days, 20 mg once a day for 3 days and then 10 mg once a day for 10 days and doxycycline 100 mg twice a day. FINAL DISCHARGE DIAGNOSES: Acute bronchitis, chronic obstructive pulmonary disease exacerbation and chronic hypoxic respiratory failure. LISA STEIN MD DR: DAVID/devaughn JOB#: [id number] / [id number]
== END 2017-09-06 18:45 | disposition home health service (06) | DRG 190 ==
LOC: ER 15:32 → 1 SOUTH 17:15 → ER 18:17
PROVIDERS: ADMIT Family Medicine; ATTEND Family Medicine
DX: J44.0 Chronic obstructive pulmonary disease with (acute) lower respiratory infection (principal); E43 Unspecified severe protein-calorie malnutrition; J96.11 Chronic respiratory failure with hypoxia; Z99.81 Dependence on supplemental oxygen; Z68.1 Body mass index [BMI] 19.9 or less, adult; J44.1 Chronic obstructive pulmonary disease with (acute) exacerbation; F41.9 Anxiety disorder, unspecified; J20.9 Acute bronchitis, unspecified; Z80.0 Family history of malignant neoplasm of digestive organs; Z80.1 Family history of malignant neoplasm of trachea, bronchus and lung; Z87.891 Personal history of nicotine dependence
CPT/HCPCS: 36415; 71010; 80053; 82553; 83735; 83880; 84484; 85025; 85027; 90686; 93005; 94640; 94760; 96374; J2920; J2930; J7620; Q0162; 99285-25

== ENCOUNTER 2017-10-14 17:37 | Inpatient (IN) | payer MEDICARE ==
[~2017-10-14] VITALS: Ht 170.2 cm; Wt 49.2 kg
[~2017-10-14 17:37] MED LIST changes: +ALPR2TAB2 PO; +IBUP-1227 PO; +LORA0.5T PO; +TRAZ50TA15 PO
--- NOTE | 2017-10-14 17:50 | PHYS DOC ---
Past History Past Medical History: Anxiety, Asthma, COPD Past Surgical History: Other Alcohol Use: None Drug Use: None Adult General Chief Complaint Chief Complaint: SHORTNESS [facility] BREATH [facility] Patient is a 67-year-old male presenting to emergency department for evaluation of worsening shortness of breath after running out of his oxygen earlier today. Usually the [facility] delivers his oxygen but they stopped delivering for some reason. It appears he had the same issue last month and was admitted for the same thing. Patient follows with Dr. Lau and says he has a high degree [facility]. Patient looks like he is in very poor condition and he says that he lives with his daughter but they do not want him to live with them anymore as they no longer have to stay so the patient just left and he does not have a place to go to now. Review of Systems Review of Systems Constitutional: Denies fever or chills [] Eyes: Denies change in visual acuity, redness, or eye pain [] HENT: Denies nasal congestion or sore throat [] Respiratory: + cough, shortness of breath [] Cardiovascular: No additional information not addressed in HPI [] GI: Denies abdominal pain, nausea, vomiting, bloody stools or diarrhea [] : Denies dysuria or hematuria [] Musculoskeletal: Denies back pain or joint pain [] Integument: Denies rash or skin lesions [] Neurologic: Denies headache, focal weakness or sensory changes [] All other systems were reviewed and found to be within normal limits, except as documented in this note. Allergies Allergies Allergies Coded Allergies Type Severity Reaction Last Updated Verified sertraline Allergy Intermediate 05/08/17 Yes Physical Exam Physical Exam Constitutional: Well developed, well nourished, no acute distress, non-toxic appearance. [] HENT: Normocephalic, atraumatic, bilateral external ears normal, oropharynx moist, no oral exudates, nose normal. [] Eyes: PERRLA, EOMI, conjunctiva normal, no discharge. [] Neck: Normal range of motion, no tenderness, supple, no stridor. [] Cardiovascular:Heart rate regular rhythm, no murmur [] Lungs & Thorax: Bilateral breath sounds diminished with expiratory wheezing noted. Abdomen: Bowel sounds normal, soft, no tenderness, no masses, no pulsatile masses. [] Skin: Warm, dry, no erythema, no rash. [] Back: No tenderness, no CVA tenderness. [] Extremities: No tenderness, no cyanosis, no clubbing, ROM intact, no edema. [] Neurologic: Alert and oriented X 3, normal motor function, normal sensory function, no focal deficits noted. [] EKG EKG [] Radiology/Procedures Radiology/Procedures [] Course & Med Decision Making Course & Med Decision Making Patient does become hypoxic without his oxygen and he does appear quite short of breath. His issues are mostly social at this time but he is in chronically poor health and needs help and will likely require admission after labs and x- ray. Will transfer care to Dr. Lomax at 6 PM while awaiting workup. Patient signed out to me by Dr. Hudson at 1800 shift change. Patient seen and examined and chart reviewed. Confirmation that [facility] did not deliver patient's home O2, he also states that he no longer be able to live with the family with whom he has been staying as they have 4 children and it has gotten to be too much for them. Patient's labs been unremarkable is not yet submitted urine. He will need placement, admission for 3 overnight's and assistance with aids social worker for long-term placement. 1935: I discussed the patient with Dr. Dee recreation technician hospitalist. After thorough discussion of the patient including his history, presentation, and ED results he recommends inpatient MedSurg admission again for 3 overnight's and aids social worker assistance with long-term placement. I discussed this with the patient he is agreeable and grateful. Impressions: Chronic respiratory failure COPD exacerbation Homeless Status Dragon Disclaimer Dragon Disclaimer This electronic medical record was generated, in whole or in part, using a voice recognition dictation system. Departure Departure: Impression: Primary Impression: Chronic respiratory failure Additional Impressions: Acute exacerbation of chronic obstructive pulmonary disease (COPD) Homelessness Inadequate healthcare resources Disposition: ADMITTED INPATIENT Admitting Physician: Rodrigo Dee Condition: STABLE Referrals: PCP,NO (PCP) Additional Instructions: Dr. Dee accepts inpatient MedSurg admission for 3 overnight's and aids social worker assistance with long-term placement. Problem Qualifiers YAHAIRA HUDSON DO Oct 14, 2017 17:50 LUKE LOMAX DO Oct 14, 2017 19:42
[2017-10-14] MEDS ORDERED: methylPREDNISolone SOD SUCC PF 125 MG/2 ML VIAL. IV ONE (18:00)
[2017-10-14] MEDS ORDERED: IPRATRPIUM/ALBUTEROL 0.5/2.5MG 3 ML NEBU. NEB ONE (18:00)
--- NOTE | 2017-10-14 18:04 | EKG ---
[address] [address] Test Date: 2017-10-14 Test Time: 17:54:39 Pat Name: JR ERIC Department: Room: Gender: M Silver Cleaner: KETAN : 1950 Requested By: YAHAIRA HUDSON Order Number: [id number] Reading MD: Eze Ayala MD Measurements Intervals [place] Rate: 95 P: 90 RI: 124 QRS: 69 QRSD: 90 T: 25 QT: 330 QTc: 418 Interpretive Statements SINUS RHYTHM PRIOR ANTEROSEPTAL INFARCT Electronically Signed On 10-19-2017 16:46:57 FUR MATCHER by Eze Ayala MD
[2017-10-14 18:14] LABS: BASO # 0.1 x10^3/uL (0.0-0.2); BASO % 1 % (0-3); EOS # 0.2 x10^3/uL (0.0-0.7); EOS % 2 % (0-3); HEMATOCRIT 38.9 % (39.0-53.0); HEMOGLOBIN 13.1 g/dL (13.0-17.5); LYMPH # 1.4 x10^3/uL (1.0-4.8); LYMPH % 19 % (24-48); MEAN CORPUSCULAR HEMOGLOBIN 31 pg (25-35); MEAN CORPUSCULAR HGB CONC 34 g/dL (31-37); MEAN CORPUSCULAR VOLUME 93 fL (79-100); MONO # 0.6 x10^3/uL (0.0-1.1); MONO % 7 % (0-9); NEUT # 5.3 x10^3uL (1.8-7.7); NEUT % 71 % (31-73); PLATELET COUNT 302 x10^3/uL (140-400); RED BLOOD COUNT 4.17 x10^6/uL (4.30-5.70); WHITE BLOOD COUNT 7.5 x10^3/uL (4.0-11.0)
[2017-10-14 18:59] LABS: ALBUMIN 3.9 g/dL (3.4-5.0); ALBUMIN/GLOBULIN RATIO 1.4 (1.0-1.7); CALCIUM 9.3 mg/dL (8.5-10.1); CREATININE 0.8 mg/dL (0.7-1.3); GFR 96.1; MAGNESIUM 1.9 mg/dL (1.8-2.4); POTASSIUM 4.9 mmol/L (3.5-5.1); TOTAL BILIRUBIN 0.3 mg/dL (0.2-1.0); TOTAL PROTEIN 6.6 g/dL (6.4-8.2)
[2017-10-14] MEDS ORDERED: ALBUTEROL SULFATE 2.5 MG/3 ML NEBU. NEB PRN (19:30)
[2017-10-14] MEDS ORDERED: ONDANSETRON PF 4 MG/2 ML VIAL. IV PRN (19:30)
[2017-10-14] MEDS ORDERED: ACETAMINOPHEN 325 MG TABLET PO PRN (19:30)
[2017-10-14 20:36] LABS: BILIRUBIN,URINE NEG (NEG); CLARITY,URINE CLEAR; COLOR,URINE YELLOW; GLUCOSE,URINE NEG (NEG); NITRITE,URINE NEG (NEG); RBC,URINE 0 /HPF (0-2); UROBILINOGEN,URINE 0.2 mg/dL (0.2 mg/dL); WBC,URINE RARE /HPF (0-4)
[2017-10-14 20:37] LABS: BACTERIA,URINE 0 /HPF (0-FEW)
[2017-10-14] MEDS: IPRATRPIUM/ALBUTEROL 0.5/2.5MG 3 ML NEBU. NEB SCH (21:00)
[2017-10-14 21:02] VITALS: BP 130/81
[2017-10-14] MEDS: LORazepam 0.5 MG TABLET PO SCH (21:49)
[2017-10-14] MEDS: traZODone 50 MG TABLET. PO PRN (21:49)
[2017-10-15 05:32] VITALS: BP 116/69
[2017-10-15] MEDS: IPRATRPIUM/ALBUTEROL 0.5/2.5MG 3 ML NEBU. NEB SCH ×4 (05:58→21:59)
[2017-10-15] MEDS ORDERED: NON FORMULARY ITEM (Albuterol Sulfate (Albuterol Sulfate Conc Neb Soln) 1 VIAL) NEB PRN (08:30)
[2017-10-15] MEDS ORDERED: ALBUTEROL SULFATE 2.5 MG/3 ML NEBU. NEB PRN (08:45)
--- NOTE | 2017-10-15 08:58 | RAD ---
PORTABLE CHEST 1V Clinical Indication: SOA Comparison: September 03, 2017 Technique: Upright portable AP view of the chest is obtained. Findings: No interval consolidation, pleural effusion or pneumothorax is seen. Hyperinflation consistent with emphysematous changes are redemonstrated. Cardiomediastinal silhouette remains within normal limits of size. Visualized osseous structures and overlying soft tissues demonstrate no acute interval change. Healed lower left rib fracture is again suggested. IMPRESSION: No focal consolidation or acute radiographic change.
[2017-10-15] MEDS ORDERED: NON FORMULARY ITEM (Tiotropium Bromide (Spiriva) 1 CAP) IH SCH (09:00)
[2017-10-15] MEDS: LORazepam 0.5 MG TABLET PO SCH ×2 (09:49→19:39)
[2017-10-15] MEDS: ASPIRIN 81 MG TAB.CHEW PO SCH (09:49)
[2017-10-15] MEDS: ROFLUMILAST 500 MCG TABLET PO SCH (09:49)
[2017-10-15 11:44] VITALS: BP 95/50
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
[2017-10-15 15:42] VITALS: BP 108/55
[2017-10-15 19:31] VITALS: BP 98/49
[2017-10-15] MEDS: TAMSULOSIN 0.4 MG CAP.ER.24H. PO SCH (19:39)
[2017-10-15] MEDS: traZODone 50 MG TABLET. PO PRN (19:39)
[2017-10-15 23:04] VITALS: BP 109/66
[2017-10-16 05:30] VITALS: BP 112/56
[2017-10-16] MEDS: IPRATRPIUM/ALBUTEROL 0.5/2.5MG 3 ML NEBU. NEB SCH ×4 (06:03→20:47)
[2017-10-16] MEDS: LORazepam 0.5 MG TABLET PO SCH ×2 (08:09→19:16)
[2017-10-16] MEDS: ASPIRIN 81 MG TAB.CHEW PO SCH (08:09)
[2017-10-16] MEDS: ROFLUMILAST 500 MCG TABLET PO SCH (08:09)
[2017-10-16 08:37] LABS: ALBUMIN 3.1 g/dL (3.4-5.0); ALBUMIN/GLOBULIN RATIO 1.2 (1.0-1.7); CALCIUM 8.7 mg/dL (8.5-10.1); GFR 74.3; MAGNESIUM 1.8 mg/dL (1.8-2.4); POTASSIUM 4.9 mmol/L (3.5-5.1); TOTAL BILIRUBIN 0.2 mg/dL (0.2-1.0); TOTAL PROTEIN 5.7 g/dL (6.4-8.2)
[2017-10-16 08:50] LABS: BASO # 0.1 x10^3/uL (0.0-0.2); BASO % 1 % (0-3); EOS # 0.3 x10^3/uL (0.0-0.7); EOS % 3 % (0-3); HEMATOCRIT 33.8 % (39.0-53.0); HEMOGLOBIN 11.2 g/dL (13.0-17.5); LYMPH # 1.8 x10^3/uL (1.0-4.8); LYMPH % 23 % (24-48); MEAN CORPUSCULAR HEMOGLOBIN 32 pg (25-35); MEAN CORPUSCULAR HGB CONC 33 g/dL (31-37); MEAN CORPUSCULAR VOLUME 97 fL (79-100); MONO # 0.7 x10^3/uL (0.0-1.1); MONO % 9 % (0-9); NEUT % 64 % (31-73); PLATELET COUNT 211 x10^3/uL (140-400); RED BLOOD COUNT 3.47 x10^6/uL (4.30-5.70); RED CELL DISTRIBUTION WIDTH 14.4 % (11.5-14.5); WHITE BLOOD COUNT 7.9 x10^3/uL (4.0-11.0)
[2017-10-16 10:44] VITALS: BP 101/55
[2017-10-16 14:32] VITALS: BP 100/58
[2017-10-16] MEDS: ONDANSETRON PF 4 MG/2 ML VIAL. IV PRN (16:00)
[2017-10-16] MEDS: traZODone 50 MG TABLET. PO PRN (19:16)
[2017-10-16] MEDS: TAMSULOSIN 0.4 MG CAP.ER.24H. PO SCH (19:16)
[2017-10-16 19:17] VITALS: BP 102/56
--- NOTE | 2017-10-16 19:26 | PN ---
DATE: CURRENT PROBLEMS: 1. Mild exacerbation of chronic obstructive pulmonary disease. 2. Chronic hypoxic respiratory failure. 3. Poor social situation. 4. Weakness. 5. Debilitation. 6. Chronic nausea. SUBJECTIVE: The patient has been doing well. He is getting his breathing treatments. He only required one dose of steroids. He is oxygenating well. He needs 3 nights to do skilled which he is very willing to do. He was taken to the shower, tolerated that well. OBJECTIVE: VITAL SIGNS: Blood pressure 112/56, pulse 75, respirations 16, pulse ox 99% on 2 liters. GENERAL: He is alert. HEENT: His tongue is moist. NECK: Supple. LUNGS: Clear. No wheezing. CARDIOVASCULAR: Regular rhythm and rate. ABDOMEN: Soft, nontender. EXTREMITIES: Without edema. LABORATORY DATA: Essentially normal, slightly low albumin. PLAN: Plan for correction services tomorrow and will order nutritional supplements. BRI ALEXANDRE DO DR: DUARTE/devaughn JOB#: [id number] / [id number]
[2017-10-16 23:06] VITALS: BP 133/74
[2017-10-17 05:31] VITALS: BP 104/50
[2017-10-17] MEDS: IPRATRPIUM/ALBUTEROL 0.5/2.5MG 3 ML NEBU. NEB SCH ×4 (05:57→19:50)
[2017-10-17 06:28] LABS: CALCIUM 9.1 mg/dL (8.5-10.1); CREATININE 0.9 mg/dL (0.7-1.3); GFR 83.9; POTASSIUM 4.7 mmol/L (3.5-5.1)
[2017-10-17 06:32] LABS: HEMATOCRIT 30.9 % (39.0-53.0); HEMOGLOBIN 10.4 g/dL (13.0-17.5); RED BLOOD COUNT 3.3 x10^6/uL (4.30-5.70); RED CELL DISTRIBUTION WIDTH 14.2 % (11.5-14.5); WHITE BLOOD COUNT 7.1 x10^3/uL (4.0-11.0)
[2017-10-17] MEDS: ASPIRIN 81 MG TAB.CHEW PO SCH (08:11)
[2017-10-17] MEDS: ROFLUMILAST 500 MCG TABLET PO SCH (08:11)
[2017-10-17] MEDS: LORazepam 0.5 MG TABLET PO SCH ×2 (08:11→20:09)
[2017-10-17 11:05] VITALS: BP 115/66
[2017-10-17] MEDS: ONDANSETRON PF 4 MG/2 ML VIAL. IV PRN (13:45)
[2017-10-17 14:31] VITALS: BP 117/65
[2017-10-17 19:15] VITALS: BP 115/65
[2017-10-17] MEDS: traZODone 50 MG TABLET. PO PRN (20:09)
[2017-10-17] MEDS: TAMSULOSIN 0.4 MG CAP.ER.24H. PO SCH (20:09)
[2017-10-18] MEDS: IPRATRPIUM/ALBUTEROL 0.5/2.5MG 3 ML NEBU. NEB SCH ×4 (05:33→20:00)
[2017-10-18 05:45] VITALS: BP 133/61
--- NOTE | 2017-10-18 06:15 | PN ---
DATE: 10/17/2017 SUBJECTIVE: The patient is a 67-year-old male patient, who was yet again admitted with mild exacerbation of his chronic obstructive pulmonary disease, chronic hypoxic respiratory failure. He also has self care deficit and poor social situation, weakness, debility, and was basically admitted and continued with his medication and arrangement has been made for him to be admitted to a group home facility in the [facility] in [place]. PHYSICAL EXAMINATION: GENERAL: When I examined him this afternoon, he was sitting on the edge of the bed with a tripod posture, extremely macerated, cachectic, pale, but no jaundice, cyanosis, or thyromegaly. No jugular venous distension. No limb edema. VITAL SIGNS: His heart rate was 85, blood pressure was 117/65, temperature was 98.9, respiratory rate 20, and oxygen saturation was 97% on 2 liters of oxygen. HEAD, EYES, EARS, NOSE, AND THROAT: Normocephalic, atraumatic. NECK: Supple. HEART: Showed normal first and second heart sounds with no gallop, rub, or murmur. CHEST: Clear to auscultation. No crepitation or rhonchi. ABDOMEN: Distended, soft, nontender. No guarding or rigidity. No organomegaly. Hernial orifice intact. Bowel sounds normal. NEUROLOGIC: He was awake, alert, responding appropriately. All cranial nerves intact. He moves extremities without difficulty, although has marked muscle wasting and weakness. His intake over the last 24 hour was 2800, output was 1725. LABORATORY DATA: As of this morning showed a white cell count of 7100, hemoglobin 10.4, hematocrit 31, MCV 94, and platelet count of 223,000. His chemistry showed a serum sodium 143, potassium 4.7, chloride 106, bicarbonate 34, anion gap of 3, BUN 17, creatinine 0.9, estimated GFR was 84 mL per minute. Glucose was 103, calcium was 9.1. Urinalysis was unremarkable. His urine showed no growth after 48 hours. Chest x-ray showed there is no focal consolidation or acute radiographic changes. PLAN: To continue with his current medication. He will be discharged tomorrow to [facility] in [place], [place]. LISA STEIN MD DR: DAVID/devaughn JOB#: [id number] / [id number]
[2017-10-18] MEDS: LORazepam 0.5 MG TABLET PO SCH ×2 (08:14→20:01)
[2017-10-18] MEDS: ASPIRIN 81 MG TAB.CHEW PO SCH (08:14)
[2017-10-18] MEDS: ROFLUMILAST 500 MCG TABLET PO SCH (08:14)
[2017-10-18 11:02] VITALS: BP 135/67
[2017-10-18 14:45] VITALS: BP 114/72
[2017-10-18 19:10] VITALS: BP 113/62
[2017-10-18] MEDS: traZODone 50 MG TABLET. PO PRN (20:01)
[2017-10-18] MEDS: TAMSULOSIN 0.4 MG CAP.ER.24H. PO SCH (20:01)
[2017-10-19 05:20] VITALS: BP 107/56
[2017-10-19] MEDS: IPRATRPIUM/ALBUTEROL 0.5/2.5MG 3 ML NEBU. NEB SCH (05:43)
[2017-10-19] MEDS ORDERED: TAMS0.4C97 PO ×2 (07:38→07:40)
[2017-10-19 07:57] VITALS: BP 126/79
--- NOTE | 2017-10-19 08:37 | PN ---
DATE: 10/18/2017 SUBJECTIVE: The patient is resting, sitting up in his bed, in no apparent respiratory distress. On questioning him, he denied any complaints. Nursing staff did not voice any concern. He apparently managed to walk with a walker with the physical therapist and apparently could not be transferred today to [facility] and arrangement has been made for him to be transferred there tomorrow, around 10:00. PHYSICAL EXAMINATION: GENERAL: When I examined him, he looked pale, cachectic, no jaundice, cyanosis, lymphadenopathy, or thyromegaly. No jugular venous distension. No limb edema. VITAL SIGNS: Her heart rate was 87, blood pressure 114/72, temperature was 98.1, respiratory rate 20, and oxygen saturation was 97% on 1 liter of oxygen. Rest of clinical examination is unremarkable, has not really changed. LABORATORY DATA: Showed that his BUN was 17, creatinine 0.9, hemoglobin 10, hematocrit 30. Normal white cell count and platelets. ASSESSMENT: 1. Acute on chronic hypoxic respiratory failure. 2. Chronic obstructive pulmonary disease exacerbation. 3. Protein-calorie malnutrition. 4. Debility and deconditioning. LISA STEIN MD DR: DAVID/devaughn JOB#: [id number] / [id number]
[2017-10-19] MEDS: ASPIRIN 81 MG TAB.CHEW PO SCH (08:50)
[2017-10-19] MEDS: LORazepam 0.5 MG TABLET PO SCH (08:50)
[2017-10-19] MEDS: ROFLUMILAST 500 MCG TABLET PO SCH (08:51)
--- NOTE | 2017-10-20 00:08 | DS ---
DATE OF DISCHARGE: 10/19/2017 HOSPITAL COURSE: The patient is a 67-year-old male patient, who was yet again admitted with acute COPD exacerbation, acute hypoxic respiratory failure. He apparently lives alone and became clear that he is severe self-care deficit and a decision was made to discharge him to [facility] in [place] for long-term care. PHYSICAL EXAMINATION: GENERAL: When I saw him today, he looked well and was clearly in no apparent respiratory distress. He was pale, extremely cachectic, but not jaundiced, cyanosis, or thyromegaly. No jugular venous distension. No limb edema. VITAL SIGNS: His heart rate was 91, blood pressure 126/79, temperature was 97.2, respiratory rate 20, and oxygen saturation was 99% on 2 liters of oxygen. HEAD, EYES, EARS, NOSE AND THROAT: Normocephalic, atraumatic. NECK: Supple. HEART: Showed normal first and second heart sounds. No gallop, rub or murmur. CHEST: Clear to auscultation. No crepitation or rhonchi. ABDOMEN: Distended, soft, nontender. NEUROLOGIC: He was awake, alert, responding appropriately. Cranial nerves intact. He has marked muscle wasting and weakness. His body mass index only 17 kilograms per square meter. His intake was 2170, output was 1950. LABORATORY DATA: Showed a white cell count of 7000, hemoglobin 10, hematocrit 30, MCV 94 and platelet count 223,000. His chemistry showed a serum sodium 143, potassium 4.7, chloride 106, bicarbonate 34, anion gap of 3, BUN 17, creatinine 0.9, estimated GFR was 84 mL per minute, his glucose 103, and calcium was 9.1. DISCHARGE MEDICATIONS: He was discharged to continue on following medication: Albuterol sulfate 2.5 mg in 0.5 mL by nebulizer every 4 hours as needed, aspirin 81 mg once a day, fluoxetine 10 mg once a day, ibuprofen 200 mg 1-2 tablets every 6 hours as needed, lorazepam 0.5 mg twice a day, Daliresp 500 mcg tablet once a day, Flomax 0.4 mg at bedtime, Tiotropium bromide for HandiHaler 1 inhalation once a day and trazodone 50 mg at bedtime. FINAL DISCHARGE DIAGNOSES: 1. Acute on chronic hypoxic respiratory failure. 2. Chronic obstructive pulmonary disease exacerbation. 3. Benign prostatic hypertrophy. 4. Marked muscle wasting and weakness. LISA STEIN MD DR: DAVID/devaughn JOB#: [id number] / [id number]
== END 2017-10-19 11:20 | DRG 189 ==
LOC: ER 17:37 → 1 SOUTH 19:33
PROVIDERS: ADMIT Family Medicine; ATTEND Family Medicine
DX: J96.21 Acute and chronic respiratory failure with hypoxia (principal); E46 Unspecified protein-calorie malnutrition; J44.1 Chronic obstructive pulmonary disease with (acute) exacerbation; Z68.1 Body mass index [BMI] 19.9 or less, adult; F32.9 Major depressive disorder, single episode, unspecified; N40.0 Benign prostatic hyperplasia without lower urinary tract symptoms; F41.9 Anxiety disorder, unspecified; Z60.2 Problems related to living alone; Z59.0 Homelessness; Z80.0 Family history of malignant neoplasm of digestive organs; Z80.1 Family history of malignant neoplasm of trachea, bronchus and lung; Z87.891 Personal history of nicotine dependence; Z88.8 Allergy status to other drugs, medicaments and biological substances; Z95.0 Presence of cardiac pacemaker
CPT/HCPCS: 36415; 71010; 80048; 80053; 81001; 82550; 83690; 83735; 83880; 84484; 85025; 85027; 85379; 87086; 93005; 94640; 94760; 96374; J2405; J2930; J7620; 97530; 99285-25

== ENCOUNTER 2017-12-25 14:45 | Emergency (ER) | payer MEDICARE ==
[~2017-12-25] VITALS: Ht 322.6 cm; Wt 51.4 kg
[~2017-12-25 14:45] MED LIST changes: +TAMS0.4C97 PO
[2017-12-25 14:50] VITALS: BP 126/79
[2017-12-25 15:38] LABS: BASO % 0 % (0-3); EOS # 0.3 x10^3/uL (0.0-0.7); EOS % 3 % (0-3); HEMATOCRIT 39.5 % (39.0-53.0); HEMOGLOBIN 13.2 g/dL (13.0-17.5); LYMPH # 1.5 x10^3/uL (1.0-4.8); LYMPH % 15 % (24-48); MEAN CORPUSCULAR HEMOGLOBIN 32 pg (25-35); MEAN CORPUSCULAR HGB CONC 34 g/dL (31-37); MEAN CORPUSCULAR VOLUME 95 fL (79-100); MONO # 0.8 x10^3/uL (0.0-1.1); MONO % 8 % (0-9); NEUT # 7.2 x10^3uL (1.8-7.7); NEUT % 73 % (31-73); PLATELET COUNT 283 x10^3/uL (140-400); RED BLOOD COUNT 4.15 x10^6/uL (4.30-5.70); WHITE BLOOD COUNT 9.8 x10^3/uL (4.0-11.0)
--- NOTE | 2017-12-25 15:48 | PHYS DOC ---
Past History Past Medical History: Anxiety, Asthma, COPD, Depression Past Surgical History: Other Alcohol Use: None Drug Use: None Adult General Chief Complaint Chief Complaint: SHORTNESS OF BREATH HPI HPI 67-year-old male patient with history of COPD on 2 or 3 L of home oxygen and frequent emergency room visits states his oxygen dental 4 or 5 hours ago and he felt shortness of breath. Patient complaining of chronic cough without change. Patient family member/neighbor states he has oxygen at home. Patient complaining of chronic gluteal ulcer for several months and vomiting and diarrhea several times a day for the last several weeks. Patient asking for admission at Hospital for transferring to shelter with using medicare and medicate. Review of Systems Review of Systems Constitutional: Denies fever or chills [] Eyes: Denies change in visual acuity, redness, or eye pain [] HENT: Denies nasal congestion or sore throat [] Respiratory: Reports coronary cough and shortness of breath [] Cardiovascular: No additional information not addressed in HPI [] GI: Denies abdominal pain, reports nausea, vomiting, diarrhea [] : Denies dysuria or hematuria [] Musculoskeletal: Denies back pain or joint pain [] Integument: Denies rash or skin lesions [] Neurologic: Denies headache, focal weakness or sensory changes [] Endocrine: Denies polyuria or polydipsia [] All other systems were reviewed and found to be within normal limits, except as documented in this note. Current Medications Current Medications Current Medications Medications (Trade) Dose Ordered Sig/Frank Start Time Stop Time Status Last Admin Dose Admin Albuterol/ Ipratropium (Duoneb) 3 ml 1X ONCE 12/25/17 16:00 12/25/17 16:01 Methylprednisolone Sodium Succinate (SOLU-Medrol 125MG VIAL) 125 mg 1X ONCE 12/25/17 16:00 12/25/17 16:01 Allergies Allergies Allergies Coded Allergies Type Severity Reaction Last Updated Verified sertraline Allergy Intermediate 05/08/17 Yes Physical Exam Physical Exam Constitutional: thin patient, mild distress, non-toxic appearance. [] HENT: Normocephalic, atraumatic, bilateral external ears normal, oropharynx moist, no oral exudates, nose normal. [] Eyes: PERRLA, EOMI, conjunctiva normal, no discharge. [] Neck: Normal range of motion, no tenderness, supple, no stridor. [] Cardiovascular:Heart rate regular rhythm, no murmur [] Lungs & Thorax: Mild respiratory distress, intercostal retraction, decrease of air movement with mild rhonchi Abdomen: Bowel sounds normal, soft, no tenderness, no masses, no pulsatile masses. [] Skin: Warm, dry, no erythema, no rash. [] Back: No tenderness, no CVA tenderness. [] Extremities: No tenderness, no cyanosis, no clubbing, ROM intact, no edema. [] Neurologic: Alert and oriented X 3, normal motor function, normal sensory function, no focal deficits noted. [] Psychologic: Anxious Current Patient Data Lab Results Laboratory Tests Test 12/25/17 15:05 White Blood Count 9.8 x10^3/uL (4.0-11.0) Red Blood Count 4.15 x10^6/uL (4.30-5.70) L Hemoglobin 13.2 g/dL (13.0-17.5) Hematocrit 39.5 % (39.0-53.0) Mean Corpuscular Volume 95 fL (79-100) Mean Corpuscular Hemoglobin 32 pg (25-35) Mean Corpuscular Hemoglobin Concent 34 g/dL (31-37) Red Cell Distribution Width 14.0 % (11.5-14.5) Platelet Count 283 x10^3/uL (140-400) Neutrophils (%) (Auto) 73 % (31-73) Lymphocytes (%) (Auto) 15 % (24-48) L Monocytes (%) (Auto) 8 % (0-9) Eosinophils (%) (Auto) 3 % (0-3) Basophils (%) (Auto) 0 % (0-3) Neutrophils # (Auto) 7.2 x10^3uL (1.8-7.7) Lymphocytes # (Auto) 1.5 x10^3/uL (1.0-4.8) Monocytes # (Auto) 0.8 x10^3/uL (0.0-1.1) Eosinophils # (Auto) 0.3 x10^3/uL (0.0-0.7) Basophils # (Auto) 0.0 x10^3/uL (0.0-0.2) EKG EKG [] Radiology/Procedures Radiology/Procedures [] Course & Med Decision Making Course & Med Decision Making Pertinent Labs and Imaging studies reviewed. (See chart for details) Evaluation of patient in ER showed 67-year-old male patient with history of COPD and currently smoking complaining of shortness of breath for several days. Patient had stable O2 sat and labs and felt better with treatment in ER. Patient wanted to stay at Hospital but he was told that he needs to follow with his primary care physician outpatient. [] Dragon Disclaimer Dragon Disclaimer This electronic medical record was generated, in whole or in part, using a voice recognition dictation system. Departure Departure: Impression: Primary Impression: Acute exacerbation of chronic obstructive pulmonary disease (COPD) Additional Impressions: Tobacco abuse Tobacco abuse counseling Disposition: HOME, SELF-CARE (At 1750) Condition: IMPROVED Referrals: JAY BRANDON DO (PCP) Patient Instructions: Chronic Obstructive Pulmonary Disease Exacerbation Additional Instructions: Drink plenty of liquids Follow-up with your primary care physician in 3-5 days Return to ER if not getting better Scripts Benzonatate (TESSALON PERLE) 100 Mg Capsule 1 CAP PO TID, #21 CAP Prov: OSWALDO DRISCOLL MD 12/25/17 Methylprednisolone (MEDROL) 4 Mg Tab.ds.pk 1 PKG PO UD, #1 PKG Prov: OSWALDO DRISCOLL MD 12/25/17 Azithromycin (ZITHROMAX) 250 Mg Tablet 1 PKG PO UD, #1 PKG Prov: OSWALDO DRISCOLL MD 12/25/17 Problem Qualifiers OSWALDO DRISCOLL MD Dec 25, 2017 15:47
[2017-12-25 15:52] LABS: ALBUMIN 3.7 g/dL (3.4-5.0); ALBUMIN/GLOBULIN RATIO 1.2 (1.0-1.7); CALCIUM 9.3 mg/dL (8.5-10.1); CREATININE 0.7 mg/dL (0.7-1.3); GFR 112.1; POTASSIUM 4.8 mmol/L (3.5-5.1); TOTAL BILIRUBIN 0.2 mg/dL (0.2-1.0); TOTAL PROTEIN 6.7 g/dL (6.4-8.2)
[2017-12-25] MEDS ORDERED: methylPREDNISolone SOD SUCC PF 125 MG/2 ML VIAL. IV ONE (16:00)
[2017-12-25] MEDS ORDERED: IPRATRPIUM/ALBUTEROL 0.5/2.5MG 3 ML NEBU. NEB ONE (16:00)
[2017-12-25 16:20] LABS: INFLUENZA A PATIENT NEGATIVE (NEGATIVE); INFLUENZA B PATIENT NEGATIVE (NEGATIVE)
[2017-12-25] MEDS ORDERED: cefTRIAXone IV Push 1 GM VIAL. IVP ONE (17:30)
[2017-12-25] MEDS ORDERED: METH4TAB2 PO (17:49)
[2017-12-25] MEDS ORDERED: BENZ100C PO (17:49)
[2017-12-25] MEDS ORDERED: AZIT250T PO (17:49)
--- NOTE | 2017-12-26 07:45 | RAD ---
EXAM: Chest 2 views. HISTORY: Shortness of breath, chronic obstructive pulmonary disease. COMPARISON: 10/14/2017. FINDINGS: Frontal and lateral views of the chest are obtained. Hyperinflation indicates advanced chronic obstructive pulmonary disease. Mild linear opacities in the left base most likely indicate scarring. There are no clear infiltrates. Chronic left inferolateral rib fractures are noted. There is no pneumothorax or pleural effusion. The heart is not enlarged. IMPRESSION: 1. Advanced chronic obstructive pulmonary disease.
== END 2017-12-25 17:56 | disposition home or self-care (01) ==
LOC: ER 14:45
DX: J44.1 Chronic obstructive pulmonary disease with (acute) exacerbation (principal); R11.2 Nausea with vomiting, unspecified; R19.7 Diarrhea, unspecified; Z99.81 Dependence on supplemental oxygen; Z72.0 Tobacco use; Z71.6 Tobacco abuse counseling; Z88.8 Allergy status to other drugs, medicaments and biological substances
CPT/HCPCS: 36415; 71046; 80053; 83880; 84484; 85025; 87804; 96374; 99285; J2930; J7620